=== PATIENT | female | born 1935 | race Caucasian/White ===

== ENCOUNTER 2018-01-06 16:28 | Emergency (ER) | payer MEDICARE, MEDICAID ==
[~2018-01-06] VITALS: Ht 152.4 cm; Wt 54.4 kg
--- NOTE | 2018-01-06 16:29 | NUR ---
PT IS IN ROOM #2A. DR JAEGER EVALUATED THE PT.
--- NOTE | 2018-01-06 16:35 | NUR ---
Pt is unable to recall her home medications at this time.
[2018-01-06] MEDS ORDERED: IBUPROFEN 800 MG TABLET PO ONE (17:00)
[2018-01-06] MEDS ORDERED: IBUPROFEN 800 MG TABLET ONE (17:00)
--- NOTE | 2018-01-06 18:08 | NUR ---
PT WAS D/C TO HOME. D/C INSTRUCTIONS GIVEN TO THE PT. GAIT IS STABLE. PT DENIES PAIN. NO SOB. NO N/V. PT LEFT HOSPITAL BY TAXI.
[2018-01-06 18:10] VITALS: BP 136/77
== END 2018-01-06 18:19 | disposition home or self-care (01) ==
LOC: EDBD 16:29 → ER 16:29
DX: S09.90XA Unspecified injury of head, initial encounter (principal); W01.198A Fall on same level from slipping, tripping and stumbling with subsequent striking against other object, initial encounter; Y93.89 Activity, other specified; Y92.89 Other specified places as the place of occurrence of the external cause; Y99.8 Other external cause status
CPT/HCPCS: 70450; 72125; 99284; A4663

== ENCOUNTER 2020-01-05 12:42 | Inpatient (IN) | payer MEDICARE, OTHER ==
[~2020-01-05] VITALS: Ht 152.4 cm; Wt 49.9 kg
[2020-01-05] MEDS ORDERED: ASPI81TA31 PO (12:53)
[2020-01-05] MEDS ORDERED: NITR0.4T SL (12:53)
[2020-01-05] MEDS ORDERED: ERGO500040 PO (12:53)
[2020-01-05] MEDS ORDERED: METO50TA7 PO (12:53)
[2020-01-05] MEDS ORDERED: CLON0.1T PO (12:53)
[2020-01-05] MEDS ORDERED: ACET-2154 PO (12:53)
[2020-01-05] MEDS ORDERED: FAMO-132 PO (12:53)
[2020-01-05] MEDS ORDERED: SIMV20TA2 PO (12:53)
[2020-01-05] MEDS ORDERED: CLOP75TA15 PO (12:53)
[2020-01-05] MEDS ORDERED: LISI10TA PO (12:53)
[2020-01-05] MEDS ORDERED: DONE10TA11 PO (12:53)
[2020-01-05] MEDS ORDERED: MECL-159 PO (12:53)
[2020-01-05] MEDS ORDERED: ATRO10DR (12:53)
[2020-01-05] MEDS ORDERED: QUET25TA PO (12:53)
--- NOTE | 2020-01-05 13:43 | NUR ---
PT TRANSFERED TO U IN STABLE CONDITION. PT ATE HALF A SANDWICH AND JUICE. PT REMAINED CALM AND COOPERATIVE.
[2020-01-05 14:00] VITALS: BP 139/58
--- NOTE | 2020-01-05 14:06 | NUR ---
Gps/Public Relations Coordinator - Received from ER via shell , alert, ,oriented x 2, she knows her name, and she know. Daus she is in the Hosp., claimed her daughter brought her here in the Hospital for bouts of dizziness. Per hold patient was confused, threatening her family . Daughter brought patient to the ER. via wheel chair for becoming dulce with staff and family members at home.Patient hitting self and family members .Patient denies SI./HI when asked with fur sewer (Rosa) Smiles,, oriented to the unit settings. Patient would like to be called "Alondra "
[2020-01-05] MEDS ORDERED: TEMAZEPAM 7.5 MG CAPSULE PO PRN (15:15)
[2020-01-05] MEDS ORDERED: BLOOD SUGAR DIAGNOSTIC 1 EACH STRIP VI ONE (15:15)
[2020-01-05] MEDS ORDERED: MAG HYDROX/AL HYDROX/SIMETH 30 ML LIQUID UDC PO PRN (15:15)
[2020-01-05] MEDS ORDERED: MAGNESIUM HYDROXIDE 30 ML LIQUID UDC PO PRN (15:15)
[2020-01-05] MEDS ORDERED: CLONAZEPAM 0.5 MG TABLET PO PRN (15:15)
[2020-01-05] MEDS ORDERED: ACETAMINOPHEN 325 MG TABLET PO PRN (15:15)
--- NOTE | 2020-01-05 17:12 | NUR ---
Gps/Public Records Officer- Confused, wandering around, Blood Sugar checked, 68 apple sauce , crackers given.
--- NOTE | 2020-01-05 17:57 | NUR ---
Gps/Ui Programmer- Patient has hearing aid one hearing aid left ear, per church musician patient refused to removed (Farsi speaking)
[2020-01-05 20:00] VITALS: BP 135/62
[2020-01-05] MEDS: SIMVASTATIN 20 MG TABLET PO SCH (21:10)
[2020-01-06 06:51] LABS: BASOPHILS # (AUTO) 0.1 K/uL (0.0-8.0); EOSINOPHILS # (AUTO) 0.2 K/uL (0.0-0.7); EOSINOPHILS % (AUTO) 3.2 % (0.0-7.0); HEMATOCRIT 35.3 % (31.2-41.9); HEMOGLOBIN 11.8 g/dL (10.9-14.3); LYMPHOCYTES # (AUTO) 1.4 K/uL (20.0-40.0); LYMPHOCYTES % (AUTO) 21.9 % (20.5-51.5); MEAN CORPUSCULAR HEMOGLOBIN 30.1 uug (24.7-32.8); MEAN CORPUSCULAR HGB CONC 33 g/dL (32.3-35.6); MEAN CORPUSCULAR VOLUME 90.3 fL (75.5-95.3); MONOCYTES # (AUTO) 0.6 K/uL (2.0-10.0); MONOCYTES % (AUTO) 9.7 % (0.0-11.0); NEUTROPHILS % (AUTO) 64.2 % (38.5-71.5); PLATELET COUNT (AUTO) 300 K/uL (179-408); RED BLOOD CELL COUNT(AUTO) 3.91 MIL/uL (3.63-4.92); WHITE BLOOD COUNT (AUTO) 6.2 K/uL (3.8-11.8)
[2020-01-06 07:30] VITALS: BP 147/49
[2020-01-06 07:53] LABS: ALANINE AMINOTRANSFERASE 10 U/L (14-59); ALKALINE PHOSPHATASE 85 U/L (50-136); ASPARTATE AMINOTRANSFERASE 19 U/L (15-37); BILIRUBIN,TOTAL 0.4 mg/dL (0.2-1.0); CARBON DIOXIDE 28 mmol/L (21-32); CHLORIDE 109 mmol/L (98-107); CREATININE 1.2 mg/dL (0.6-1.3); GLUCOSE 91 mg/dL (74-106); MAGNESIUM 2.2 mg/dL (1.8-2.4); PHOSPHOROUS 3.5 mg/dL (2.5-4.9); POTASSIUM 3.9 mmol/L (3.5-5.1); TOTAL PROTEIN, SERUM 6.3 g/dL (6.4-8.2); UREA NITROGEN, BLOOD 20 mg/dL (7-18)
[2020-01-06 08:37] LABS: THYROID STIMULATING HORMONE 1.552 mIU/mL (0.358-3.740)
[2020-01-06] MEDS: CLOPIDOGREL 75 MG TABLET PO SCH (08:53)
[2020-01-06] MEDS: FAMOTIDINE 20 MG TABLET PO SCH (08:54)
[2020-01-06] MEDS: METOPROLOL SUCCINATE XL 50 MG TAB.SR.24H PO SCH (08:54)
[2020-01-06] MEDS: LISINOPRIL 10 MG TABLET PO SCH (08:54)
--- NOTE | 2020-01-06 11:34 | NUR ---
Social Work Family Contact: diversified crops ii farmworker contacted patient's daughter Lola ([phone]) to gather collateral.
--- NOTE | 2020-01-06 11:34 | NUR ---
Social Work Initial Discharge Plan: Patient currently resides with daughter Lola ([phone]) at [address] [place] [address]; ([phone]). Per daughter Lola ([phone]) stated that she would want her mother to go to a SNF. restaurant worker will work with the patient and the MD regarding appropriate discharge planning. restaurant worker will form a safe and proper discharge.
[2020-01-06] MEDS ORDERED: QUETIAPINE FUMARATE 25 MG TABLET PO SCH ×2 (12:15→21:00)
[2020-01-06 15:36] VITALS: BP 118/47
--- NOTE | 2020-01-06 16:06 | NUR ---
Gps/Client Success Director- Wanders around, safety reviewed and emphasized. constant redirections.
[2020-01-06 20:00] VITALS: BP 144/72
[2020-01-06] MEDS: SIMVASTATIN 20 MG TABLET PO SCH (20:24)
[2020-01-06] MEDS: QUETIAPINE FUMARATE 25 MG TABLET PO SCH (20:25)
[2020-01-06] MEDS: MIRTAZAPINE 15 MG TABLET PO SCH (20:25)
--- NOTE | 2020-01-06 20:55 | NUR ---
Patient received wondering the hallway in and out of patient's room needs constant redirection. Patient alert/oriented x1 with confusion noted. Patient complaint with medication. Safe environment provided, frequent rounding, and clutter free environment. Bed in lowest position, bed locked, and bed alarm on while in bed.
[2020-01-06] MEDS ORDERED: MIRTAZAPINE 15 MG TABLET PO SCH (21:00)
[2020-01-07] MEDS: FAMOTIDINE 20 MG TABLET PO SCH (10:49)
[2020-01-07] MEDS: METFORMIN HCL 500 MG TABLET PO SCH ×2 (10:49→18:26)
[2020-01-07] MEDS: CLOPIDOGREL 75 MG TABLET PO SCH (10:50)
[2020-01-07] MEDS: QUETIAPINE FUMARATE 25 MG TABLET PO SCH ×2 (10:50→20:27)
--- NOTE | 2020-01-07 11:00 | NUR ---
Gps/Academic Affairs Assistant- Kathy (daughter) called wants to know how patient doing, was informed pt. only slept 1 hours last night , and when night Nurse offered prn med. restoril for sleep, pt, thre med. Also daughter claimed she spoked to patient Primary Psychiatrist from outside( Dr Chago Chavez) she is willing to cooperate to patient tx plan..
[2020-01-07 12:00] VITALS: BP 113/41
[2020-01-07] MEDS: LISINOPRIL 10 MG TABLET PO SCH (12:30)
[2020-01-07] MEDS: CYANOCOBALAMIN 1000 MCG/ML VIAL IM SCH (12:33)
[2020-01-07 16:00] VITALS: BP 115/70
[2020-01-07] MEDS: METOPROLOL SUCCINATE XL 50 MG TAB.SR.24H PO SCH (16:31)
--- NOTE | 2020-01-07 17:48 | NUR ---
Gps/Virtual Classroom Manager - Slept on and off most of the day, daughter called couple of times to check on her and to talked to her.Patient had been compliant with routine meds. after explained to her in Farsi- hand pattern marker assisting . Anxious, redirectable in Farsi, pt. also noted speaks simple Greenlandic.Offered shower late this pm.
[2020-01-07] MEDS: MIRTAZAPINE 15 MG TABLET PO SCH (20:25)
[2020-01-07] MEDS: SIMVASTATIN 20 MG TABLET PO SCH (20:27)
[2020-01-07 21:15] VITALS: BP 124/52
--- NOTE | 2020-01-07 23:28 | NUR ---
RECEIVED PATIENT WALKING UP AND DOWN THE HALLWAY WITH OCCASIONAL WANDERING INTO OTHERS ROOMS. SHE HOWEVER DOES WELL WITH RE- DIRECTION. COULD BE HEARD TALKING TO HERSELF BUT COULD NOT ASCERTAIN IF SHE WAS HEARING VOICES SHE SPEAKS MINIMAL TUVALUAN.HOWEVER APPEARS NEEDY BUT PLEASANT. VISUAL CHECKS MAD ON HER FOR SAFETY. WILL CONTINUE TO MONITOR.
[2020-01-08 07:30] VITALS: BP 123/46
[2020-01-08] MEDS: METFORMIN HCL 500 MG TABLET PO SCH ×2 (08:28→17:30)
[2020-01-08] MEDS: QUETIAPINE FUMARATE 25 MG TABLET PO SCH ×2 (08:29→20:37)
[2020-01-08] MEDS: METOPROLOL SUCCINATE XL 50 MG TAB.SR.24H PO SCH (08:29)
[2020-01-08] MEDS: LISINOPRIL 10 MG TABLET PO SCH (08:30)
[2020-01-08] MEDS: FAMOTIDINE 20 MG TABLET PO SCH (08:30)
[2020-01-08] MEDS: CLOPIDOGREL 75 MG TABLET PO SCH (08:33)
[2020-01-08] MEDS: CYANOCOBALAMIN 1000 MCG/ML VIAL IM SCH (08:36)
[2020-01-08 13:00] VITALS: BP 104/34
--- NOTE | 2020-01-08 16:29 | NUR ---
Gps/Furnace Clerk- Stayed in bed in her room most of the day, encouraged to attend her group, eat meals in the dinning room, had been meds. compliant was able to talked to her daughter 2x today.
[2020-01-08] MEDS: SIMVASTATIN 20 MG TABLET PO SCH (20:37)
[2020-01-08] MEDS ORDERED: MIRTAZAPINE 15 MG TABLET PO SCH (21:00)
--- NOTE | 2020-01-08 23:48 | NUR ---
RECEIVED PATIENT IN ACTIVITY ROOM.LATER WENT OT HER ROOM. COMPLIANT WITH MEDICATION AND COOPERATIVE WITH STAFF FOR HER CARE. NO BEHAVIORAL ISSUES AT THIS TIME. VISUAL CHECKS MADE ON HER FOR SAFETY. WILL CONTINUE TO MONITOR.
--- NOTE | 2020-01-09 06:32 | NUR ---
SLEPT FOR ABOUT 07:00 HOURS. SHE HAS HAD A SHOWER.
[2020-01-09 07:30] VITALS: BP 113/53
[2020-01-09] MEDS: FAMOTIDINE 20 MG TABLET PO SCH (08:25)
[2020-01-09] MEDS: CLOPIDOGREL 75 MG TABLET PO SCH (08:26)
[2020-01-09] MEDS: QUETIAPINE FUMARATE 25 MG TABLET PO SCH (08:26)
[2020-01-09] MEDS: LISINOPRIL 10 MG TABLET PO SCH (08:26)
[2020-01-09] MEDS: METFORMIN HCL 500 MG TABLET PO SCH (08:26)
[2020-01-09 08:27] VITALS: BP 113/53
[2020-01-09] MEDS: METOPROLOL SUCCINATE XL 50 MG TAB.SR.24H PO SCH (08:27)
[2020-01-09] MEDS: CYANOCOBALAMIN 1000 MCG/ML VIAL IM SCH (08:35)
--- NOTE | 2020-01-09 11:18 | NUR ---
Social Work Coordination of Care: construction ironworker spoke with Magui from patient's doctor office (Dr. Hunt); ([phone]) and made an apt for patient on 01/13/20 at 9:45AM. This marine underwriter contacted [facility] ([phone]) and spoke with Donavan officer of the day who arranged apt 01/11/2020 1:45PM. construction ironworker spoke to Cassie ([phone]) scheduled home health services through [facility] [address] [place] [address], [address], [place] [address] and a nurse will be sent to evaluate patient on 01/10/2020.
--- NOTE | 2020-01-09 11:20 | NUR ---
Social Work Discharge Note: Patient will be discharged home to [address], [place] [address]; ([phone]). Patients daughter Lola ([phone]) will continuous pickling line pickler helper patient at 2PM. Patients daughter is aware and agreeable to patients discharge. Upon discharge, patient appear to be calm, cooperative and happy to be going home. Patient denies suicidal and homicidal ideation. Patient is alert and oriented x1-2, is aware and agreeable on discharge and wants to go back home. Patient will follow up with Dr. Hunt (oxyacetylene cutter) at [address] [facility] [address], [place] [address] ([phone]) at January 12 at 9:45AM. Patient will follow up with (psychiatrist) Dr. Arana [place] [address] [facility] [address], [place] [address]; ([phone]) will follow-up with patient. This bond underwriter made an appointment for psychiatrist evaluation at [address] [facility] [address], [place] [address]; ([phone]) on 01/11/2020 at 1:45PM.renal social worker spoke to Cassie ([phone]) scheduled home health services through [facility] [id number] [place] [address], [address], [place] [address] and a nurse will be sent to evaluate patient on 01/10/2020. Patient presented with euthymic mood and congruent affect. Addendum: 01/09/20 at 1128 by SIDNEY DOTY Patient psychiatrist Dr. Arana got back to this bond underwriter and scheduled an apt on 01/12/20 and will be TeleHealth. Per Miri, she will send in link.
--- NOTE | 2020-01-09 11:29 | NUR ---
Social Work Firearms Report: Senior Operator completed and submitted a [employer] firearms report for 5250 grave disability certification. A copy of report has been placed in patient chart.
--- NOTE | 2020-01-09 13:42 | NUR ---
patient will be discharged home with daughter at 2 pm, patient will continue follow up with and dr. valle as well. all personal belonging and home medication returned to pt.
[2020-01-11] MEDS ORDERED: ERGOCALCIFEROL 50,000 UNIT CAPSULE PO SCH (09:00)
== END 2020-01-09 14:30 | disposition home health service (06) | DRG 885 ==
LOC: ER 12:42 → GPS 13:09
PROVIDERS: ADMIT Psychiatry & Neurology Psychiatry; ATTEND Internal Medicine
DX: F33.3 Major depressive disorder, recurrent, severe with psychotic symptoms (principal); D68.69 Other thrombophilia; F03.90 Unspecified dementia, unspecified severity, without behavioral disturbance, psychotic disturbance, mood disturbance, and anxiety; I25.10 Atherosclerotic heart disease of native coronary artery without angina pectoris; M81.0 Age-related osteoporosis without current pathological fracture; E78.5 Hyperlipidemia, unspecified; F41.9 Anxiety disorder, unspecified; M19.90 Unspecified osteoarthritis, unspecified site; I25.2 Old myocardial infarction; E53.8 Deficiency of other specified B group vitamins; E11.9 Type 2 diabetes mellitus without complications; I11.9 Hypertensive heart disease without heart failure; R91.8 Other nonspecific abnormal finding of lung field
CPT/HCPCS: 36415; 71045; 83735; 84100; 84443; 85025; 93005; A4663; J3420

== ENCOUNTER 2020-01-17 15:38 | Inpatient (IN) | payer MEDICARE, OTHER ==
[~2020-01-17] VITALS: Ht 154.9 cm; Wt 59.0 kg
[~2020-01-17 15:38] MED LIST: ACET-2154 PO; ATRO10DR; CLON0.1T PO; CLOP75TA15 PO; DONE10TA11 PO; ERGO500040 PO; FAMO-132 PO; LISI10TA PO; MECL-159 PO; METO50TA7 PO; NITR0.4T SL; QUET25TA PO; SIMV20TA2 PO
[2020-01-17 16:06] LABS: BASOPHILS # (AUTO) 0.1 K/uL (0.0-8.0); BASOPHILS % (AUTO) 0.9 % (0.0-2.0); EOSINOPHILS # (AUTO) 0.1 K/uL (0.0-0.7); EOSINOPHILS % (AUTO) 2.3 % (0.0-7.0); HEMATOCRIT 35.5 % (31.2-41.9); HEMOGLOBIN 11.7 g/dL (10.9-14.3); LYMPHOCYTES # (AUTO) 1.2 K/uL (20.0-40.0); LYMPHOCYTES % (AUTO) 18.6 % (20.5-51.5); MEAN CORPUSCULAR HEMOGLOBIN 30.2 uug (24.7-32.8); MEAN CORPUSCULAR HGB CONC 33 g/dL (32.3-35.6); MEAN CORPUSCULAR VOLUME 91.3 fL (75.5-95.3); MONOCYTES # (AUTO) 0.5 K/uL (2.0-10.0); MONOCYTES % (AUTO) 7.2 % (0.0-11.0); NEUTROPHILS # (AUTO) 4.5 K/uL (1.8-8.9); PLATELET COUNT (AUTO) 280 K/uL (179-408); RED BLOOD CELL COUNT(AUTO) 3.89 MIL/uL (3.63-4.92); WHITE BLOOD COUNT (AUTO) 6.3 K/uL (3.8-11.8)
[2020-01-17] MEDS ORDERED: CHOL10002 PO (16:06)
[2020-01-17] MEDS ORDERED: OXCA300T15 PO (16:06)
[2020-01-17] MEDS ORDERED: ASPI81TA31 PO (16:06)
[2020-01-17] MEDS ORDERED: QUET25TA PO (16:06)
[2020-01-17] MEDS ORDERED: MIRT15TA7 PO (16:06)
[2020-01-17] MEDS ORDERED: VITAMIN D (16:06)
[2020-01-17 16:14] LABS: CREATININE 1.3 mg/dL (0.6-1.3); POTASSIUM 3.9 mmol/L (3.5-5.1)
[2020-01-17 16:18] LABS: *BILIRUBIN,URIN NEGATIVE (NEGATIVE); *BLOOD, URINE NEGATIVE (NEGATIVE); *CLARITY,URINE CLEAR (CLEAR); *COLOR,URINE YELLOW (YELLOW); *KETONES,URINE NEGATIVE (NEGATIVE); *UROBILINOGEN,URINE 0.2 E.U./dl (NORMAL); LEUKOCYTE ESTERASE ,URINE TRACE (NEGATIVE); NITRITE, URINE NEGATIVE (NEGATIVE); UGLUCOSE NEGATIVE (NEGATIVE)
[2020-01-17 16:20] LABS: BILIRUBIN,DIRECT 0.1 mg/dL (0.0-0.2); BILIRUBIN,TOTAL 0.3 mg/dL (0.2-1.0); TOTAL PROTEIN, SERUM 6.5 g/dL (6.4-8.2)
[2020-01-17 17:00] VITALS: BP 128/47
[2020-01-17 17:24] LABS: RBC,URINE 0-3 /HPF (0-3)
[2020-01-17 17:25] LABS: BACTERIA,URINE FEW /HPF (NONE SEEN); SQUAMOUS EPITHELIAL CELL,UR FEW /HPF (NONE SEEN); WBC,URINE 0-3 /HPF (0-3)
[2020-01-17] MEDS ORDERED: ONDANSETRON 4 MG/2 ML VIAL IV PRN (17:45)
[2020-01-17] MEDS ORDERED: ACETAMINOPHEN 325 MG TABLET PO PRN (17:45)
[2020-01-17] MEDS ORDERED: CHOLECALCIFEROL 1,000 UNIT TABLET PO SCH (17:45)
[2020-01-17] MEDS ORDERED: QUETIAPINE FUMARATE 25 MG TABLET PO SCH (18:00)
[2020-01-17] MEDS ORDERED: ZIPRASIDONE MESYLATE 20 MG VIAL IM PRN (18:30)
[2020-01-17] MEDS ORDERED: OLANZAPINE 10 MG VIAL IM PRN ×2 (18:45)
[2020-01-17] MEDS: SIMVASTATIN 20 MG TABLET PO SCH (20:01)
[2020-01-17] MEDS: OXCARBAZEPINE 300 MG TABLET PO SCH (20:02)
[2020-01-17 20:03] VITALS: BP 121/45
[2020-01-17] MEDS ORDERED: MIRTAZAPINE 15 MG TABLET PO SCH (21:00)
[2020-01-18 04:40] VITALS: BP 122/58
[2020-01-18] MEDS: PANTOPRAZOLE SODIUM 40 MG TABLET.DR PO SCH (06:29)
[2020-01-18 06:43] LABS: BASOPHILS # (AUTO) 0.1 K/uL (0.0-8.0); BASOPHILS % (AUTO) 1.1 % (0.0-2.0); EOSINOPHILS # (AUTO) 0.2 K/uL (0.0-0.7); HEMATOCRIT 35.5 % (31.2-41.9); HEMOGLOBIN 11.9 g/dL (10.9-14.3); LYMPHOCYTES # (AUTO) 1.6 K/uL (20.0-40.0); LYMPHOCYTES % (AUTO) 29.2 % (20.5-51.5); MEAN CORPUSCULAR HEMOGLOBIN 30.4 uug (24.7-32.8); MEAN CORPUSCULAR HGB CONC 34 g/dL (32.3-35.6); MEAN CORPUSCULAR VOLUME 90.4 fL (75.5-95.3); MONOCYTES # (AUTO) 0.5 K/uL (2.0-10.0); MONOCYTES % (AUTO) 9.4 % (0.0-11.0); NEUTROPHILS # (AUTO) 3.1 K/uL (1.8-8.9); NEUTROPHILS % (AUTO) 56.3 % (38.5-71.5); PLATELET COUNT (AUTO) 273 K/uL (179-408); RED BLOOD CELL COUNT(AUTO) 3.93 MIL/uL (3.63-4.92); WHITE BLOOD COUNT (AUTO) 5.6 K/uL (3.8-11.8)
[2020-01-18 07:13] LABS: BILIRUBIN,TOTAL 0.3 mg/dL (0.2-1.0); CREATININE 1.2 mg/dL (0.6-1.3); MAGNESIUM 1.9 mg/dL (1.8-2.4); PHOSPHOROUS 3.6 mg/dL (2.5-4.9); TOTAL PROTEIN, SERUM 6.4 g/dL (6.4-8.2)
[2020-01-18] MEDS: GLIMEPIRIDE 2 MG TABLET PO SCH (08:50)
[2020-01-18] MEDS: CLOPIDOGREL 75 MG TABLET PO SCH (08:51)
[2020-01-18] MEDS: ASPIRIN EC 81 MG TABLET.DR PO SCH (08:51)
[2020-01-18] MEDS: DONEPEZIL 10 MG TABLET PO SCH (08:51)
[2020-01-18] MEDS: LISINOPRIL 10 MG TABLET PO SCH (08:54)
[2020-01-18] MEDS: METOPROLOL SUCCINATE XL 50 MG TAB.SR.24H PO SCH (08:54)
[2020-01-18] MEDS: QUETIAPINE FUMARATE 25 MG TABLET PO SCH ×3 (09:45→16:44)
[2020-01-18] MEDS: DIVALPROEX SPRINKLE 125 MG CAP.SPRINK PO SCH ×2 (09:45→20:19)
[2020-01-18 12:00] VITALS: BP 117/35
[2020-01-18 16:03] VITALS: BP 133/50
[2020-01-18] MEDS ORDERED: FUROSEMIDE 20 MG TABLET PO ONE (16:30)
[2020-01-18 20:12] VITALS: BP 145/53
[2020-01-18] MEDS: SIMVASTATIN 20 MG TABLET PO SCH (20:20)
[2020-01-18] MEDS: OXCARBAZEPINE 300 MG TABLET PO SCH (20:20)
[2020-01-18] MEDS ORDERED: MIRTAZAPINE 15 MG TABLET PO SCH (21:00)
[2020-01-19 04:06] VITALS: BP 150/61
[2020-01-19] MEDS: PANTOPRAZOLE SODIUM 40 MG TABLET.DR PO SCH (06:27)
[2020-01-19] MEDS: ASPIRIN EC 81 MG TABLET.DR PO SCH (08:03)
[2020-01-19] MEDS: METOPROLOL SUCCINATE XL 50 MG TAB.SR.24H PO SCH (08:03)
[2020-01-19] MEDS: QUETIAPINE FUMARATE 25 MG TABLET PO SCH ×3 (08:03→16:33)
[2020-01-19] MEDS: GLIMEPIRIDE 2 MG TABLET PO SCH (08:03)
[2020-01-19] MEDS: LISINOPRIL 10 MG TABLET PO SCH (08:03)
[2020-01-19] MEDS: CLOPIDOGREL 75 MG TABLET PO SCH (08:03)
[2020-01-19] MEDS: DIVALPROEX SPRINKLE 125 MG CAP.SPRINK PO SCH (08:03)
[2020-01-19] MEDS: DONEPEZIL 10 MG TABLET PO SCH (08:04)
[2020-01-19] MEDS ORDERED: ENOXAPARIN SODIUM 40 MG/0.4 ML DISP.SYRIN SQ SCH (09:00)
[2020-01-19] MEDS ORDERED: ENOXAPARIN SODIUM 30 MG/0.3 ML DISP.SYRIN SUBCUT SCH (09:00)
[2020-01-19 12:00] VITALS: BP 102/41
[2020-01-19 16:00] VITALS: BP 110/50
[2020-01-19] MEDS ORDERED: MIRT15TA7 PO ×2 (17:11→20:58)
[2020-01-19] MEDS ORDERED: GLIM2TAB PO (17:11)
[2020-01-19] MEDS ORDERED: DIVA125C2 PO ×2 (17:11→20:58)
[2020-01-19] MEDS ORDERED: ACET325T53 PO (17:11)
[2020-01-19] MEDS ORDERED: PANT40TA2 PO ×2 (17:11→20:58)
[2020-01-19] MEDS ORDERED: ATOR20TA PO ×2 (17:11→20:58)
[2020-01-19] MEDS ORDERED: ASPI-618 PO (17:11)
[2020-01-19] MEDS ORDERED: QUET25TA PO ×2 (17:11→20:58)
[2020-01-19] MEDS ORDERED: MULT-594 PO ×2 (17:11→20:58)
[2020-01-19] MEDS ORDERED: CLOP75TA33 PO (20:58)
[2020-01-19] MEDS ORDERED: GLIM1TAB PO (20:58)
[2020-01-19] MEDS ORDERED: LISI10TA5 PO (20:58)
[2020-01-19] MEDS ORDERED: METO50TA7 PO (20:58)
[2020-01-19] MEDS ORDERED: OXCA300T15 PO (20:58)
[2020-01-19] MEDS ORDERED: DONE10TA11 PO (20:58)
[2020-01-19] MEDS ORDERED: ASPI81TA31 PO (20:58)
[2020-01-19] MEDS ORDERED: CHOL400T (20:58)
== END 2020-01-19 18:35 | DRG 438 ==
LOC: ER 15:41 → MEDSURG3 16:39
PROVIDERS: ADMIT Internal Medicine; ATTEND Internal Medicine
DX: K85.90 Acute pancreatitis without necrosis or infection, unspecified (principal); N17.0 Acute kidney failure with tubular necrosis; G92 Toxic encephalopathy; I50.31 Acute diastolic (congestive) heart failure; D68.69 Other thrombophilia; F03.91 Unspecified dementia, unspecified severity, with behavioral disturbance; E87.3 Alkalosis; F33.3 Major depressive disorder, recurrent, severe with psychotic symptoms; N39.0 Urinary tract infection, site not specified; E86.9 Volume depletion, unspecified; E78.5 Hyperlipidemia, unspecified; F41.9 Anxiety disorder, unspecified; I07.1 Rheumatic tricuspid insufficiency; I11.0 Hypertensive heart disease with heart failure; I25.2 Old myocardial infarction; E53.8 Deficiency of other specified B group vitamins; E11.9 Type 2 diabetes mellitus without complications; I25.10 Atherosclerotic heart disease of native coronary artery without angina pectoris; M81.0 Age-related osteoporosis without current pathological fracture; M19.90 Unspecified osteoarthritis, unspecified site; Z79.02 Long term (current) use of antithrombotics/antiplatelets; Z79.82 Long term (current) use of aspirin; M50.30 Other cervical disc degeneration, unspecified cervical region; F39 Unspecified mood [affective] disorder; Z79.84 Long term (current) use of oral hypoglycemic drugs; R62.7 Adult failure to thrive; Z68.24 Body mass index [BMI] 24.0-24.9, adult; Z87.440 Personal history of urinary (tract) infections; R40.2362 Coma scale, best motor response, obeys commands, at arrival to emergency department; R40.2142 Coma scale, eyes open, spontaneous, at arrival to emergency department; R40.2242 Coma scale, best verbal response, confused conversation, at arrival to emergency department
CPT/HCPCS: 36415; 70030-TC; 71250; 83605; 83690; 83735; 84100; 85025; 87040; 87086; 93005; 93307; A4663; G0378; J1650; J2358

== ENCOUNTER 2020-01-19 20:04 | Inpatient (IN) | payer MEDICARE, OTHER ==
[~2020-01-19] VITALS: Ht 152.4 cm; Wt 50.3 kg
[~2020-01-19 20:04] MED LIST changes: -ACET-2154 PO; +ACET325T53 PO; +ASPI-618 PO; +ASPI81TA31 PO; +ATOR20TA PO; -ATRO10DR; +CHOL10002 PO; +DIVA125C2 PO; -ERGO500040 PO; -FAMO-132 PO; +GLIM2TAB PO; +MIRT15TA7 PO; +MULT-594 PO; -NITR0.4T SL; +OXCA300T15 PO; +PANT40TA2 PO
--- NOTE | 2020-01-19 20:30 | NUR ---
ADMISSION NOTE: Admitted earlier 84 year old female from medical surgical floor on 5150 hold for GD, hold will be up on 01/22/20 at 1545. Per hold and speaking to her daughter, patient has been agitated, non-compliant, not eating, not compliant with care, and family unable to provide care d/t behavior. Upon face to face assessment, patient A/Ox1 she speaks Farsi but she is able to understand a little Luxembourger. She is able to ambulate with steady gait. Patient reflects what is written in the hold. she is noted anxious, preoccupied, wondering in the unit. Patient required constant redirections. Pt educated regarding unit rules and expectations. Patient rights explained, Advisement and patient rights handbook given, Pt oriented to the unit, the phones, her room and roommate, and the bathroom. Patient is under the care of Dr. Ha and Dr Morales. Will continue to monitor Q15 min checks.
[2020-01-19] MEDS ORDERED: LISI10TA5 PO (20:58)
[2020-01-19] MEDS ORDERED: DONE10TA11 PO (20:58)
[2020-01-19] MEDS ORDERED: CHOL400T (20:58)
[2020-01-19] MEDS ORDERED: ATOR20TA PO (20:58)
[2020-01-19] MEDS ORDERED: ASPI81TA31 PO (20:58)
[2020-01-19] MEDS ORDERED: METO50TA7 PO (20:58)
[2020-01-19] MEDS ORDERED: MULT-594 PO (20:58)
[2020-01-19] MEDS ORDERED: DIVA125C2 PO (20:58)
[2020-01-19] MEDS ORDERED: PANT40TA2 PO (20:58)
[2020-01-19] MEDS ORDERED: QUET25TA PO (20:58)
[2020-01-19] MEDS ORDERED: GLIM1TAB PO (20:58)
[2020-01-19] MEDS ORDERED: MIRT15TA7 PO (20:58)
[2020-01-19] MEDS ORDERED: OXCA300T15 PO (20:58)
[2020-01-19] MEDS ORDERED: CLOP75TA33 PO (20:58)
[2020-01-19 21:07] VITALS: BP 119/62
[2020-01-19] MEDS ORDERED: MAGNESIUM HYDROXIDE 30 ML LIQUID UDC PO PRN (21:15)
[2020-01-19] MEDS ORDERED: MAG HYDROX/AL HYDROX/SIMETH 30 ML LIQUID UDC PO PRN (21:15)
[2020-01-19] MEDS ORDERED: BLOOD SUGAR DIAGNOSTIC 1 EACH STRIP VI ONE (21:15)
[2020-01-20 01:00] VITALS: BP 125/63
[2020-01-20 07:30] VITALS: BP 115/50
[2020-01-20 07:47] LABS: BILIRUBIN,TOTAL 0.4 mg/dL (0.2-1.0); CREATININE 1.2 mg/dL (0.6-1.3); POTASSIUM 3.6 mmol/L (3.5-5.1); TOTAL PROTEIN, SERUM 5.9 g/dL (6.4-8.2)
--- NOTE | 2020-01-20 08:52 | NUR ---
Social Work Initial Discharge Plan: Patient currently resides with daughter Lola ([phone]) at [address] [place] [address]; ([phone]). Per daughter Lola ([phone]) stated that she would want her mother to go to a SNF. sheet metal layout worker will work with the patient and the MD regarding appropriate discharge planning. sheet metal layout worker will form a safe and proper discharge.
--- NOTE | 2020-01-20 08:53 | NUR ---
Social Work Family Contact: This clinical writer contacted patient's daughter Lola ([phone]) and gathered collateral. Per daughter, she might wanted her mother to go to a SNF.
[2020-01-20] MEDS: CHOLECALCIFEROL 400 UNITS TABLET PO SCH (12:45)
[2020-01-20 15:02] VITALS: BP 132/53
[2020-01-20] MEDS: DIVALPROEX SPRINKLE 125 MG CAP.SPRINK PO SCH (17:14)
[2020-01-20] MEDS: QUETIAPINE FUMARATE 25 MG TABLET PO SCH (17:14)
[2020-01-20 20:18] VITALS: BP 134/54
[2020-01-20] MEDS: MIRTAZAPINE 15 MG TABLET PO SCH (20:30)
[2020-01-20] MEDS: ATORVASTATIN 20 MG TABLET PO SCH (20:30)
[2020-01-21] MEDS ORDERED: Medication Not On Formulary EA (Glimepiride (Amaryl) 1 MG) PO SCH (06:00)
[2020-01-21 07:30] VITALS: BP 129/47
[2020-01-21] MEDS: PANTOPRAZOLE SODIUM 40 MG TABLET.DR PO SCH (07:34)
[2020-01-21] MEDS ORDERED: Medication Not On Formulary EA (Multivitamins (Multivitamin) 1 EACH) PO SCH (09:00)
[2020-01-21] MEDS: GLIMEPIRIDE 2 MG TABLET PO SCH (09:19)
[2020-01-21] MEDS: METOPROLOL SUCCINATE XL 50 MG TAB.SR.24H PO SCH (09:20)
[2020-01-21] MEDS: DIVALPROEX SPRINKLE 125 MG CAP.SPRINK PO SCH ×3 (09:20→16:44)
[2020-01-21] MEDS: MULTIVITAMINS,THERAPEUTIC TABLET PO SCH (09:21)
[2020-01-21] MEDS: CLOPIDOGREL 75 MG TABLET PO SCH (09:21)
[2020-01-21] MEDS: ASPIRIN EC 81 MG TABLET.DR PO SCH (09:22)
[2020-01-21] MEDS: QUETIAPINE FUMARATE 25 MG TABLET PO SCH ×3 (09:22→16:44)
[2020-01-21] MEDS: LISINOPRIL 10 MG TABLET PO SCH (09:22)
[2020-01-21] MEDS: CHOLECALCIFEROL 400 UNITS TABLET PO SCH (09:23)
[2020-01-21 16:00] VITALS: BP 132/50
[2020-01-21 20:00] VITALS: BP 145/46
[2020-01-21] MEDS: MIRTAZAPINE 15 MG TABLET PO SCH (20:06)
[2020-01-21] MEDS: ATORVASTATIN 20 MG TABLET PO SCH (20:06)
--- NOTE | 2020-01-21 23:38 | NUR ---
RECEIVED PATIENT WALKING UP AND DOWN THE HALLWAY.SHE APPEARED ANXIOUS,CONFUSED BUT DOES WELL WITH REDIRECTION. SHE IS MEDICATION COMPLIANT.COULD NOT GET MUCH INFORMATION FROM HER SHE IS FARSI SPEAKING WITH LITTLE NIGERIAN.VISUAL CHECKS MADE ON HER FOR SAFETY. WILL CONTINUE TO MONITOR.
[2020-01-22] MEDS: CLONAZEPAM 0.5 MG TABLET PO PRN (00:43)
[2020-01-22] MEDS: PANTOPRAZOLE SODIUM 40 MG TABLET.DR PO SCH (06:12)
--- NOTE | 2020-01-22 06:21 | NUR ---
SHE SLEPT FOR APPROX.4:45 HOURS. GOT UP SEVERAL TIMES DURING THE NIGHT. HOWEVER RESTING COMFORTABLY IN BED THIS MORNING.
[2020-01-22 07:30] VITALS: BP 134/69
[2020-01-22] MEDS: GLIMEPIRIDE 2 MG TABLET PO SCH (07:59)
[2020-01-22] MEDS: QUETIAPINE FUMARATE 25 MG TABLET PO SCH (08:00)
[2020-01-22] MEDS: LISINOPRIL 10 MG TABLET PO SCH (08:00)
[2020-01-22] MEDS: DIVALPROEX SPRINKLE 125 MG CAP.SPRINK PO SCH ×3 (08:00→17:00)
[2020-01-22] MEDS: CLOPIDOGREL 75 MG TABLET PO SCH (08:01)
[2020-01-22] MEDS: CHOLECALCIFEROL 400 UNITS TABLET PO SCH (08:01)
[2020-01-22] MEDS: ASPIRIN EC 81 MG TABLET.DR PO SCH (08:01)
[2020-01-22] MEDS: METOPROLOL SUCCINATE XL 50 MG TAB.SR.24H PO SCH (08:01)
[2020-01-22] MEDS: MULTIVITAMINS,THERAPEUTIC TABLET PO SCH (08:01)
--- NOTE | 2020-01-22 09:00 | NUR ---
Patient became dizzy and unsteady. Redirected back to bed and when she didn't stay in bed due to safety risk, patient placed in malena chair and slept for 1/2 hour.
[2020-01-22 11:55] LABS: BASOPHILS % (AUTO) 0.6 % (0.0-2.0); EOSINOPHILS # (AUTO) 0.2 K/uL (0.0-0.7); EOSINOPHILS % (AUTO) 2.5 % (0.0-7.0); HEMATOCRIT 37.3 % (31.2-41.9); HEMOGLOBIN 12.3 g/dL (10.9-14.3); LYMPHOCYTES # (AUTO) 1.7 K/uL (20.0-40.0); LYMPHOCYTES % (AUTO) 25.4 % (20.5-51.5); MEAN CORPUSCULAR HEMOGLOBIN 30.1 uug (24.7-32.8); MEAN CORPUSCULAR HGB CONC 33 g/dL (32.3-35.6); MEAN CORPUSCULAR VOLUME 91.4 fL (75.5-95.3); MONOCYTES # (AUTO) 0.5 K/uL (2.0-10.0); MONOCYTES % (AUTO) 7.9 % (0.0-11.0); NEUTROPHILS # (AUTO) 4.4 K/uL (1.8-8.9); NEUTROPHILS % (AUTO) 63.6 % (38.5-71.5); PLATELET COUNT (AUTO) 258 K/uL (179-408); RED BLOOD CELL COUNT(AUTO) 4.08 MIL/uL (3.63-4.92); WHITE BLOOD COUNT (AUTO) 6.9 K/uL (3.8-11.8)
[2020-01-22 12:11] LABS: BILIRUBIN,TOTAL 0.3 mg/dL (0.2-1.0); CREATININE 1.1 mg/dL (0.6-1.3); PHOSPHOROUS 3.5 mg/dL (2.5-4.9); POTASSIUM 3.9 mmol/L (3.5-5.1)
--- NOTE | 2020-01-22 12:45 | NUR ---
Glucose check completed as patient continues to be unsteady and tired. glucose check revealed Blood sugar of 31.
--- NOTE | 2020-01-22 13:15 | NUR ---
Glucose receck revealed to be 25, continued to treat with apple juice and other carb snacks. patient alert and was able to swallow without difficulty.
[2020-01-22 15:14] VITALS: BP 148/79
--- NOTE | 2020-01-22 15:40 | NUR ---
Glucose recheck revealed to be 86. Patient is alert and sitting up in bed.
[2020-01-22 20:51] VITALS: BP 151/61
[2020-01-22] MEDS: MIRTAZAPINE 15 MG TABLET PO SCH (20:51)
[2020-01-22] MEDS: ATORVASTATIN 20 MG TABLET PO SCH (20:51)
--- NOTE | 2020-01-23 01:14 | NUR ---
RECEIVED PATIENT IN BED WITH 1:1 SITTER. NOTED ANXIOUS WITH OCCASIONAL AGITATION BUT DOES WELL WITH RE DIRECTION. RANDOM BLOOD GLUCOSE CHECKS MADE. ENCOURAGED TO DRINK SOME ORANGE/APPLE JUICE BUT ONLY SIPS TAKEN. WILL CONTINUE TO MONITOR.
[2020-01-23] MEDS: PANTOPRAZOLE SODIUM 40 MG TABLET.DR PO SCH (06:20)
--- NOTE | 2020-01-23 06:32 | NUR ---
SLEPT F0R ONLY 2:HOURS. AWAKE WITH 1:1 SITTER. RANDOM BLOOD GLUCOSE CHECK DONE BOTH AT 02:00 AND IT WAS 60 AND THIS MORNING IT WAS 50. PROTOCOL INITIATED. GAVE APPLE JUICE WITH EXTRA SUGAR INCLUDED. ALSO GAVE PUDDING WELL. PLEASE CONTINUE TO MONITOR
[2020-01-23 08:00] VITALS: BP 146/55
[2020-01-23] MEDS: CLOPIDOGREL 75 MG TABLET PO SCH (09:37)
[2020-01-23] MEDS: DIVALPROEX SPRINKLE 125 MG CAP.SPRINK PO SCH ×3 (09:37→18:02)
[2020-01-23] MEDS: METOPROLOL SUCCINATE XL 50 MG TAB.SR.24H PO SCH (09:37)
[2020-01-23] MEDS: LISINOPRIL 10 MG TABLET PO SCH (09:37)
[2020-01-23] MEDS: MULTIVITAMINS,THERAPEUTIC TABLET PO SCH (09:37)
[2020-01-23] MEDS: CHOLECALCIFEROL 400 UNITS TABLET PO SCH (09:38)
[2020-01-23] MEDS: ASPIRIN EC 81 MG TABLET.DR PO SCH (09:38)
--- NOTE | 2020-01-23 15:19 | NUR ---
Social Work Coordination of Care: This policy writer sales spoke with Antoinette tam from [facility] ([phone]) and who stated that they will accept patient upon discharge.
--- NOTE | 2020-01-23 15:23 | NUR ---
Social Work Family Contact: flume worker spoke with patient's daughter Lola ([phone]) and discussed patient's discharge plan. Per Lola, she agrees for patient to be discharged to a snf facility. This ticket writer discussed that patient is accepted at [facility] ([phone]) and is agreeable.
[2020-01-23 16:19] VITALS: BP 153/52
[2020-01-23] MEDS: OLANZAPINE 2.5 MG TABLET PO SCH (20:14)
[2020-01-23] MEDS: MIRTAZAPINE 15 MG TABLET PO SCH (20:14)
[2020-01-23] MEDS: DICLOFENAC SODIUM 1% TOP SCH (20:15)
[2020-01-23] MEDS: ATORVASTATIN 20 MG TABLET PO SCH (20:15)
[2020-01-23 20:31] VITALS: BP 134/54
[2020-01-23] MEDS ORDERED: HOME MED MISCELLANEOUS TP SCH (21:00)
--- NOTE | 2020-01-24 05:52 | NUR ---
GPS: Remain calm and cooperative with meds and care. no c/o pain or discomfort at this time. no behavior problem noted. resting in bed comfortably. slept 6 hrs through the night. continue plan of care.
[2020-01-24] MEDS: PANTOPRAZOLE SODIUM 40 MG TABLET.DR PO SCH (06:20)
[2020-01-24 07:30] VITALS: BP 119/53
--- NOTE | 2020-01-24 08:00 | NUR ---
received patient asleep in bed, patient took medication, seen speaking with the alterations tailor, patient woke up refused to eat her breakfast and lunch, patient took some tea , patient reamin isolative and withdrawn, , covid test was done with the patient for her SNF DC planning, will continue monitor
[2020-01-24] MEDS: CLOPIDOGREL 75 MG TABLET PO SCH (08:50)
[2020-01-24] MEDS: LISINOPRIL 10 MG TABLET PO SCH (08:50)
[2020-01-24] MEDS: DIVALPROEX SPRINKLE 125 MG CAP.SPRINK PO SCH ×3 (08:50→16:23)
[2020-01-24] MEDS: ASPIRIN EC 81 MG TABLET.DR PO SCH (08:53)
[2020-01-24] MEDS: METOPROLOL SUCCINATE XL 50 MG TAB.SR.24H PO SCH (09:00)
[2020-01-24] MEDS: CHOLECALCIFEROL 400 UNITS TABLET PO SCH (09:05)
[2020-01-24] MEDS: MULTIVITAMINS,THERAPEUTIC TABLET PO SCH (09:08)
[2020-01-24] MEDS: DICLOFENAC SODIUM 1% TOP SCH ×2 (09:09→21:48)
[2020-01-24 15:44] VITALS: BP 126/50
--- NOTE | 2020-01-24 18:13 | NUR ---
patient remain calm, isolative and patient not eating her dinner tray, encouraged to eat but patient refused, no distress at this time
--- NOTE | 2020-01-24 19:00 | NUR ---
Patient alert but forgetful, no complain of pain at this time. Patient ambulate in hallways, then goes back to her room, remains calm at this time. cont to monitor.
[2020-01-24 20:17] VITALS: BP 112/50
[2020-01-24] MEDS: ATORVASTATIN 20 MG TABLET PO SCH (20:18)
[2020-01-24] MEDS: MIRTAZAPINE 15 MG TABLET PO SCH (20:18)
[2020-01-24] MEDS: OLANZAPINE 2.5 MG TABLET PO SCH (20:18)
--- NOTE | 2020-01-25 05:56 | NUR ---
PATIENT ASLEEP BUT EASILY AROUSABLE, NO COMPLAIN OF PAIN. PATIENT CALM ALL NIGHT, CONT TO MONITOR.
[2020-01-25] MEDS: PANTOPRAZOLE SODIUM 40 MG TABLET.DR PO SCH (06:43)
[2020-01-25 07:30] VITALS: BP 103/35
[2020-01-25] MEDS: LISINOPRIL 10 MG TABLET PO SCH (09:00)
[2020-01-25] MEDS: METOPROLOL SUCCINATE XL 50 MG TAB.SR.24H PO SCH (09:00)
[2020-01-25] MEDS: MULTIVITAMINS,THERAPEUTIC TABLET PO SCH (09:01)
[2020-01-25] MEDS: ASPIRIN EC 81 MG TABLET.DR PO SCH (09:01)
[2020-01-25] MEDS: CLOPIDOGREL 75 MG TABLET PO SCH (09:01)
[2020-01-25] MEDS: DIVALPROEX SPRINKLE 125 MG CAP.SPRINK PO SCH ×3 (09:01→16:53)
[2020-01-25] MEDS: CHOLECALCIFEROL 400 UNITS TABLET PO SCH (09:19)
[2020-01-25] MEDS: DICLOFENAC SODIUM 1% TOP SCH ×2 (09:20→20:38)
[2020-01-25 16:00] VITALS: BP 125/41
[2020-01-25 20:28] VITALS: BP 127/54
[2020-01-25] MEDS: OLANZAPINE 2.5 MG TABLET PO SCH (20:45)
[2020-01-25] MEDS: MIRTAZAPINE 15 MG TABLET PO SCH (20:45)
[2020-01-25] MEDS: ATORVASTATIN 20 MG TABLET PO SCH (20:45)
[2020-01-25] MEDS: TEMAZEPAM 7.5 MG CAPSULE PO PRN (21:00)
[2020-01-26] MEDS: PANTOPRAZOLE SODIUM 40 MG TABLET.DR PO SCH (06:26)
[2020-01-26 07:30] VITALS: BP 108/31
[2020-01-26] MEDS: LISINOPRIL 10 MG TABLET PO SCH (09:00)
[2020-01-26] MEDS: METOPROLOL SUCCINATE XL 50 MG TAB.SR.24H PO SCH (09:00)
[2020-01-26] MEDS: CLOPIDOGREL 75 MG TABLET PO SCH (09:34)
[2020-01-26] MEDS: MULTIVITAMINS,THERAPEUTIC TABLET PO SCH (09:34)
[2020-01-26] MEDS: DIVALPROEX SPRINKLE 125 MG CAP.SPRINK PO SCH ×3 (09:34→17:17)
[2020-01-26] MEDS: ASPIRIN EC 81 MG TABLET.DR PO SCH (09:34)
[2020-01-26] MEDS: CHOLECALCIFEROL 400 UNITS TABLET PO SCH (09:37)
[2020-01-26] MEDS: DICLOFENAC SODIUM 1% TOP SCH ×2 (09:39→20:58)
[2020-01-26 16:00] VITALS: BP 119/42
[2020-01-26 20:00] VITALS: BP 136/64
[2020-01-26] MEDS: OLANZAPINE 2.5 MG TABLET PO SCH (20:57)
[2020-01-26] MEDS: ATORVASTATIN 20 MG TABLET PO SCH (20:57)
[2020-01-26] MEDS: MIRTAZAPINE 15 MG TABLET PO SCH (20:57)
--- NOTE | 2020-01-27 04:28 | NUR ---
Received patient AAO x3. Calm and cooperative. Redirectable. Compliant with medications. No behavioral issue. No SI. Continue to monitor.
[2020-01-27] MEDS: PANTOPRAZOLE SODIUM 40 MG TABLET.DR PO SCH (06:55)
--- NOTE | 2020-01-27 06:55 | NUR ---
Patient refused Protonix 40 mg. risks and benefits explained, still refused. The medication was returned.
[2020-01-27 07:30] VITALS: BP 109/45
--- NOTE | 2020-01-27 08:40 | NUR ---
Patient received in room sleeping, no acute distress noted. Farsi speaking mostly; Vital signs stable for patient; no c/o pain. Patient stated she wants to sleep at this time. Safety measures in place and will continue with care.
[2020-01-27] MEDS: METOPROLOL SUCCINATE XL 50 MG TAB.SR.24H PO SCH (09:00)
[2020-01-27] MEDS: LISINOPRIL 10 MG TABLET PO SCH (09:00)
[2020-01-27] MEDS: CLOPIDOGREL 75 MG TABLET PO SCH (10:11)
[2020-01-27] MEDS: ASPIRIN EC 81 MG TABLET.DR PO SCH (10:11)
[2020-01-27] MEDS: DIVALPROEX SPRINKLE 125 MG CAP.SPRINK PO SCH ×3 (10:11→17:19)
[2020-01-27] MEDS: CHOLECALCIFEROL 400 UNITS TABLET PO SCH (10:11)
[2020-01-27] MEDS: MULTIVITAMINS,THERAPEUTIC TABLET PO SCH (10:12)
[2020-01-27] MEDS: DICLOFENAC SODIUM 1% TOP SCH ×2 (10:14→21:16)
--- NOTE | 2020-01-27 13:30 | NUR ---
SIDNEY Group Note: SIDNEY facilitated group therapy on 01/27/2020 at 1330. The group topic was discharge planning. Pt refused to attend group. SIDNEY encouraged the pt to engage in all aspects of treatment to best benefit her recovery. SIDNEY will continue to encourage pt to attend group therapy.
[2020-01-27 15:43] VITALS: BP 123/45
--- NOTE | 2020-01-27 15:52 | NUR ---
Family Contact: chemical plant worker spoke with patient's daughter Lola ([phone]) and informed her that two facilities have accepted the pt and that they are open to receive admissions. SW stated that the pt has shown less agitation and therefore will be discharged sometime in the next week to a facility. SW asked the pts daughter to call the following week with a choice between the two facilities.
--- NOTE | 2020-01-27 18:33 | NUR ---
Patient AAO x 1-2, able to express needs. NO acute distress noted. Vital signs stable. Patient was compliant throughout shift, took all due medications and tolerated well. Also compliant with care. No agitation or any SI noted. Patient participated in groups and activities at times, but stayed in the room for most of shift. Cooperates with care. Safety measures in place, needs attended, skin kept clean and dry, (took shower) and will continue with care.
[2020-01-27] MEDS: ATORVASTATIN 20 MG TABLET PO SCH (21:16)
[2020-01-27] MEDS: OLANZAPINE 2.5 MG TABLET PO SCH (21:16)
[2020-01-27] MEDS: MIRTAZAPINE 15 MG TABLET PO SCH (21:16)
[2020-01-27 21:20] VITALS: BP 148/56
[2020-01-28] MEDS: PANTOPRAZOLE SODIUM 40 MG TABLET.DR PO SCH (06:28)
[2020-01-28 07:30] VITALS: BP 132/79
[2020-01-28] MEDS: DICLOFENAC SODIUM 1% TOP SCH ×2 (10:00→20:12)
[2020-01-28] MEDS: CHOLECALCIFEROL 400 UNITS TABLET PO SCH (10:01)
[2020-01-28] MEDS: ASPIRIN EC 81 MG TABLET.DR PO SCH (10:01)
[2020-01-28] MEDS: DIVALPROEX SPRINKLE 125 MG CAP.SPRINK PO SCH ×3 (10:01→16:30)
[2020-01-28] MEDS: CLOPIDOGREL 75 MG TABLET PO SCH (10:01)
[2020-01-28] MEDS: MULTIVITAMINS,THERAPEUTIC TABLET PO SCH (10:02)
[2020-01-28] MEDS: LISINOPRIL 10 MG TABLET PO SCH (10:02)
[2020-01-28] MEDS: METOPROLOL SUCCINATE XL 50 MG TAB.SR.24H PO SCH (10:02)
[2020-01-28] MEDS ORDERED: POLYVINYL ALCOHOL OPHT DROPS 15 ML BOTTLE EACHEYE PRN (15:15)
--- NOTE | 2020-01-28 15:20 | NUR ---
spoke with patients daughter regarding the eye drop, called and spoke with MD with orders made and carried out will, called pharmacy for the eyedrops, will follow up
[2020-01-28 20:00] VITALS: BP 124/58
[2020-01-28] MEDS: MIRTAZAPINE 15 MG TABLET PO SCH (20:12)
[2020-01-28] MEDS: ATORVASTATIN 20 MG TABLET PO SCH (20:12)
[2020-01-28] MEDS: OLANZAPINE 2.5 MG TABLET PO SCH (20:12)
[2020-01-29] MEDS: TEMAZEPAM 7.5 MG CAPSULE PO PRN (01:11)
--- NOTE | 2020-01-29 06:11 | NUR ---
GPS: Remain awake most of the night. slept only 1 hrs through the night, Restoril 7.5 mg po given for sleep. not effective. refused shower this morning. Continue monitoring for safety.
[2020-01-29] MEDS: PANTOPRAZOLE SODIUM 40 MG TABLET.DR PO SCH (06:15)
[2020-01-29 07:14] LABS: BASOPHILS # (AUTO) 0.1 K/uL (0.0-8.0); BASOPHILS % (AUTO) 0.9 % (0.0-2.0); EOSINOPHILS # (AUTO) 0.2 K/uL (0.0-0.7); EOSINOPHILS % (AUTO) 3.3 % (0.0-7.0); HEMATOCRIT 37.4 % (31.2-41.9); HEMOGLOBIN 12.1 g/dL (10.9-14.3); LYMPHOCYTES # (AUTO) 1.5 K/uL (20.0-40.0); LYMPHOCYTES % (AUTO) 21.9 % (20.5-51.5); MEAN CORPUSCULAR HEMOGLOBIN 29.6 uug (24.7-32.8); MEAN CORPUSCULAR HGB CONC 32 g/dL (32.3-35.6); MEAN CORPUSCULAR VOLUME 91.4 fL (75.5-95.3); MONOCYTES # (AUTO) 0.7 K/uL (2.0-10.0); MONOCYTES % (AUTO) 10.1 % (0.0-11.0); NEUTROPHILS # (AUTO) 4.3 K/uL (1.8-8.9); NEUTROPHILS % (AUTO) 63.8 % (38.5-71.5); PLATELET COUNT (AUTO) 255 K/uL (179-408); RED BLOOD CELL COUNT(AUTO) 4.09 MIL/uL (3.63-4.92); WHITE BLOOD COUNT (AUTO) 6.8 K/uL (3.8-11.8)
[2020-01-29 07:30] VITALS: BP 96/51
[2020-01-29 07:59] LABS: BILIRUBIN,TOTAL 0.4 mg/dL (0.2-1.0); CREATININE 1.3 mg/dL (0.6-1.3); PHOSPHOROUS 3.1 mg/dL (2.5-4.9); POTASSIUM 4.1 mmol/L (3.5-5.1); TOTAL PROTEIN, SERUM 7.1 g/dL (6.4-8.2)
[2020-01-29] MEDS: CLOPIDOGREL 75 MG TABLET PO SCH (08:25)
[2020-01-29] MEDS: ASPIRIN EC 81 MG TABLET.DR PO SCH (08:25)
[2020-01-29] MEDS: DIVALPROEX SPRINKLE 125 MG CAP.SPRINK PO SCH ×3 (08:25→18:15)
[2020-01-29] MEDS: MULTIVITAMINS,THERAPEUTIC TABLET PO SCH (08:25)
[2020-01-29] MEDS: LISINOPRIL 10 MG TABLET PO SCH (08:26)
[2020-01-29] MEDS: METOPROLOL SUCCINATE XL 50 MG TAB.SR.24H PO SCH (08:26)
[2020-01-29] MEDS: CHOLECALCIFEROL 400 UNITS TABLET PO SCH (08:28)
[2020-01-29] MEDS: DICLOFENAC SODIUM 1% TOP SCH ×2 (08:29→20:30)
[2020-01-29 16:45] VITALS: BP 98/49
[2020-01-29] MEDS: OLANZAPINE 2.5 MG TABLET PO SCH (20:30)
[2020-01-29] MEDS: MIRTAZAPINE 15 MG TABLET PO SCH (20:30)
[2020-01-29] MEDS: ATORVASTATIN 20 MG TABLET PO SCH (20:30)
[2020-01-29 20:41] VITALS: BP 126/50
[2020-01-29] MEDS: CLONAZEPAM 0.5 MG TABLET PO PRN (22:08)
[2020-01-30] MEDS: TEMAZEPAM 7.5 MG CAPSULE PO PRN ×2 (00:39→22:08)
[2020-01-30] MEDS: CLONAZEPAM 0.5 MG TABLET PO PRN ×2 (04:10→08:06)
[2020-01-30] MEDS: PANTOPRAZOLE SODIUM 40 MG TABLET.DR PO SCH (06:12)
--- NOTE | 2020-01-30 06:16 | NUR ---
Slept 1.30 hours last night.
[2020-01-30 07:30] VITALS: BP 126/39
[2020-01-30] MEDS: ASPIRIN EC 81 MG TABLET.DR PO SCH (08:06)
[2020-01-30] MEDS: MULTIVITAMINS,THERAPEUTIC TABLET PO SCH (08:06)
[2020-01-30] MEDS: ACETAMINOPHEN 325 MG TABLET PO PRN ×2 (08:06→22:08)
[2020-01-30] MEDS: DIVALPROEX SPRINKLE 125 MG CAP.SPRINK PO SCH ×3 (08:06→17:00)
[2020-01-30] MEDS: CLOPIDOGREL 75 MG TABLET PO SCH (08:06)
[2020-01-30] MEDS: LISINOPRIL 10 MG TABLET PO SCH (08:07)
[2020-01-30] MEDS: METOPROLOL SUCCINATE XL 50 MG TAB.SR.24H PO SCH (08:07)
[2020-01-30] MEDS: CHOLECALCIFEROL 400 UNITS TABLET PO SCH (08:08)
[2020-01-30] MEDS: DICLOFENAC SODIUM 1% TOP SCH ×2 (08:08→20:50)
[2020-01-30 12:11] LABS: *BILIRUBIN,URIN NEGATIVE (NEGATIVE); *BLOOD, URINE NEGATIVE (NEGATIVE); *CLARITY,URINE CLEAR (CLEAR); *COLOR,URINE YELLOW (YELLOW); *KETONES,URINE NEGATIVE (NEGATIVE); *UROBILINOGEN,URINE 0.2 E.U./dl (NORMAL); LEUKOCYTE ESTERASE ,URINE 2+ (NEGATIVE); NITRITE, URINE NEGATIVE (NEGATIVE); PH,URINE 5.5 (5.0-8.0); UGLUCOSE NEGATIVE (NEGATIVE)
--- NOTE | 2020-01-30 12:53 | NUR ---
Family Contact: Patient's daughter Lola ([phone]) called the SW and stated that she would like the pt to be discharged to [facility]. SW stated that once the MD provides the SW with a discharge order she will arrange the pts discharge. SW informed her that the pt has not been sleeping so it may be one to two more days.
[2020-01-30 16:00] VITALS: BP 127/49
[2020-01-30 16:16] LABS: BACTERIA,URINE FEW /HPF (NONE SEEN); RBC,URINE 0-3 /HPF (0-3); SQUAMOUS EPITHELIAL CELL,UR FEW /HPF (NONE SEEN)
[2020-01-30 20:00] VITALS: BP 127/42
[2020-01-30] MEDS: ATORVASTATIN 20 MG TABLET PO SCH (20:43)
[2020-01-30] MEDS: MIRTAZAPINE 15 MG TABLET PO SCH (20:43)
[2020-01-30] MEDS: OLANZAPINE 2.5 MG TABLET PO SCH (20:43)
[2020-01-30] MEDS: NITROFURANTOIN/NITROFURAN MAC 100 MG CAPSULE PO SCH (21:56)
[2020-01-31] MEDS: CLONAZEPAM 0.5 MG TABLET PO PRN ×2 (00:22→07:49)
[2020-01-31] MEDS: PANTOPRAZOLE SODIUM 40 MG TABLET.DR PO SCH (06:02)
--- NOTE | 2020-01-31 06:09 | NUR ---
PT SLEPT 3 HOURS. PT IN NO ACUTE DISTRESS. PT PRESCRIBED MEDICATION GIVEN AND PT TOLERATED IT WELL. PT GIVEN TYLENOL PRN AT 2208H FOR PAIN. RESTORIL GIVEN AT 2208H GIVEN PER NURSE ASSESSMENT. ATIVAN GIIVEN PRN AT 0022H . PT YELLING, AGITATED AND BANGING THE TABLE.. AFTER AN HOUR PT CALM DOWN. PT TOLERATED IT WELL. . PT CONFUSED. NEEDS REORIENTATION AND REDIRECTION. PT NEEDS ASSIST IN AMBULATING. PT GETTING OUT OF THE BED. SAFETY AND COMFORT PROVIDED. WILL ENDORSE TO INCOMING NURSE FOR CONTINUITY OF CARE.
[2020-01-31 07:30] VITALS: BP 134/56
[2020-01-31] MEDS: ACETAMINOPHEN 325 MG TABLET PO PRN (07:49)
[2020-01-31] MEDS: NITROFURANTOIN/NITROFURAN MAC 100 MG CAPSULE PO SCH ×2 (08:20→21:21)
[2020-01-31] MEDS: DIVALPROEX SPRINKLE 125 MG CAP.SPRINK PO SCH ×3 (08:20→16:57)
[2020-01-31] MEDS: CHOLECALCIFEROL 400 UNITS TABLET PO SCH (08:20)
[2020-01-31] MEDS: CLOPIDOGREL 75 MG TABLET PO SCH (08:20)
[2020-01-31] MEDS: ASPIRIN EC 81 MG TABLET.DR PO SCH (08:20)
[2020-01-31] MEDS: METOPROLOL SUCCINATE XL 50 MG TAB.SR.24H PO SCH (08:21)
[2020-01-31] MEDS: MULTIVITAMINS,THERAPEUTIC TABLET PO SCH (08:21)
[2020-01-31] MEDS: LISINOPRIL 10 MG TABLET PO SCH (08:21)
[2020-01-31] MEDS: DICLOFENAC SODIUM 1% TOP SCH ×2 (09:08→21:24)
--- NOTE | 2020-01-31 11:37 | NUR ---
Family Contact: SW called the patient's daughter Lola ([phone]) and informed her that the pt is going to be discharged to [facility] the following day. She also provided the pts daughter with an update regarding the pts behavior and informed her that the pt has not been sleeping well but has shown less agitation. SIDNEY stated that the sleep is not a concern at this time and the discharge will go on as proceeded.
--- NOTE | 2020-01-31 15:06 | NUR ---
GPS: Nursing Notes: Inform Gina of Family Complaint: Huy from administration called the unit stating that the daughter of Teresa is calling administration and complaining that she cannot talk to her mom, patient is sleeping and resting due to not sleeping at night and having a bladder infection, Dr. Ha informed to call Teresa's daughter, phone number giving to Dr. Ha, informed Gina of Teresa's daughter Levar complaining that the nurses are not cooperating that she going to call administration, Gina examined the patient and stated that she is going to call the daughter, adjusto writer operator called Huy and informed him that I tried two time to get her fully awake to call the daughter, but patient continue to cover her head and continue to rest, also informed Huy that Gina is going to call the daughter.
[2020-01-31 15:20] VITALS: BP 128/53
[2020-01-31 20:00] VITALS: BP 130/52
--- NOTE | 2020-01-31 20:30 | NUR ---
Patient received into care sitting on side of bed in room. Patient is alert/oriented x2 and has no complaints of pain or discomfort at this time. All safety, fall, allergy, and GPS/MHU precautions are in place. Will continue to monitor and assess.
[2020-01-31] MEDS: ATORVASTATIN 20 MG TABLET PO SCH (21:21)
[2020-01-31] MEDS: MIRTAZAPINE 15 MG TABLET PO SCH (21:21)
[2020-01-31] MEDS: OLANZAPINE 2.5 MG TABLET PO SCH (21:21)
[2020-01-31] MEDS: TEMAZEPAM 7.5 MG CAPSULE PO PRN (23:08)
[2020-02-01] MEDS: CLONAZEPAM 0.5 MG TABLET PO PRN (01:48)
[2020-02-01] MEDS: PANTOPRAZOLE SODIUM 40 MG TABLET.DR PO SCH (06:04)
--- NOTE | 2020-02-01 06:46 | NUR ---
Patient slept 30 minutes this shift. Pt was compliant with medication regime, including PRN sleeping medication and PRN Klonopin. Pt is now in bed sleeping. All allergy, safety, fall, and GPS/MHU, precaution measures remain in place.
[2020-02-01 07:30] VITALS: BP 110/74
[2020-02-01 09:00] VITALS: BP 107/40
[2020-02-01] MEDS: METOPROLOL SUCCINATE XL 50 MG TAB.SR.24H PO SCH (09:00)
[2020-02-01] MEDS: LISINOPRIL 10 MG TABLET PO SCH (09:00)
--- NOTE | 2020-02-01 11:15 | NUR ---
Discharge Note: Pt was discharged to [facility] located at [address] [place] [address]; . Pt was transported via [facility] at 1300. Pts daughter, Lola ([phone]), was made aware of the discharge. Upon discharge, the pt presented in a euthymic mood and presented with a lethargic affect. Pt denied both suicidal and homicidal ideation as well as auditory and visual hallucinations. Pt appeared to be well groomed and appropriately dressed. Pt is ambulatory with a fairly steady gait. Pt will continue to be under the care of her psychiatrist, Dr. Ha, located at [address] [facility] [place] [address]; and will be under the care of long distance operator, Dr. Javi Redmond, located at [address] [facility] [address], [place] [address]; .
[2020-02-01] MEDS: NITROFURANTOIN/NITROFURAN MAC 100 MG CAPSULE PO SCH (11:56)
[2020-02-01] MEDS: CLOPIDOGREL 75 MG TABLET PO SCH (11:58)
[2020-02-01] MEDS: DIVALPROEX SPRINKLE 125 MG CAP.SPRINK PO SCH ×2 (11:59→12:21)
[2020-02-01] MEDS: ASPIRIN EC 81 MG TABLET.DR PO SCH (11:59)
[2020-02-01] MEDS: MULTIVITAMINS,THERAPEUTIC TABLET PO SCH (12:00)
[2020-02-01] MEDS: CHOLECALCIFEROL 400 UNITS TABLET PO SCH (12:02)
[2020-02-01] MEDS: DICLOFENAC SODIUM 1% TOP SCH (12:03)
--- NOTE | 2020-02-01 12:20 | NUR ---
1130 Called in report to [facility], SNF spoke with Adrianna OKEEFE who is admitting the patient. Nurse informed about medications to continue upon discharged and verbalized understanding. 1215 Discharged patient to SNF and picked up by ambulance stable condition. patient denies SI / HI. No delusion. No a/v hallucination noted.
--- NOTE | 2020-02-01 12:22 | NUR ---
depakote 125 mg at 1300 not given, too closed to first dose.
--- NOTE | 2020-02-01 13:28 | NUR ---
Family Contact: SW called the patient's daughter Lola ([phone]) and informed her that the pt was just discharged to the facility.
--- NOTE | 2020-02-07 10:27 | NUR ---
Social Work Firearms Report ([employer]J): Stiff Neck Loader completed and submitted a DP[employer] firearms report for 5150 DTSO certification. A copy of report has been placed in patient chart.
[2020-03-10] MEDS ORDERED: CEPH-569 PO (16:01)
== END 2020-02-01 13:15 | DRG 885 ==
LOC: GPS 20:04
PROVIDERS: ADMIT Psychiatry & Neurology Psychiatry; ATTEND Internal Medicine
DX: F33.3 Major depressive disorder, recurrent, severe with psychotic symptoms (principal); N17.0 Acute kidney failure with tubular necrosis; I11.0 Hypertensive heart disease with heart failure; K85.90 Acute pancreatitis without necrosis or infection, unspecified; I50.31 Acute diastolic (congestive) heart failure; E44.1 Mild protein-calorie malnutrition; F03.91 Unspecified dementia, unspecified severity, with behavioral disturbance; N39.0 Urinary tract infection, site not specified; E87.3 Alkalosis; E11.9 Type 2 diabetes mellitus without complications; F41.9 Anxiety disorder, unspecified; I25.10 Atherosclerotic heart disease of native coronary artery without angina pectoris; M81.0 Age-related osteoporosis without current pathological fracture; M19.90 Unspecified osteoarthritis, unspecified site; I25.2 Old myocardial infarction; E78.5 Hyperlipidemia, unspecified; M50.30 Other cervical disc degeneration, unspecified cervical region; E53.8 Deficiency of other specified B group vitamins; M48.02 Spinal stenosis, cervical region; F39 Unspecified mood [affective] disorder; Z73.6 Limitation of activities due to disability; F29 Unspecified psychosis not due to a substance or known physiological condition; Z68.21 Body mass index [BMI] 21.0-21.9, adult
CPT/HCPCS: 36415; 70030-TC; 80164; 83735; 84100; 85025; 87086; 93005; U0003-CS

== ENCOUNTER 2020-03-05 17:42 | Inpatient (IN) | payer MEDICARE, OTHER ==
[~2020-03-05] VITALS: Ht 152.4 cm; Wt 61.4 kg
[~2020-03-05 17:42] MED LIST changes: -CHOL10002 PO; +CHOL400T; -CLON0.1T PO; -CLOP75TA15 PO; +CLOP75TA33 PO; -DIVA125C2 PO; -DONE10TA11 PO; +GLIM1TAB PO; -GLIM2TAB PO; -LISI10TA PO; +LISI10TA5 PO; -MECL-159 PO; -MIRT15TA7 PO; -OXCA300T15 PO; -QUET25TA PO; -SIMV20TA2 PO
[2020-03-05] MEDS ORDERED: IV NORMAL SALINE 1000 ML BAG IV ONE (18:00)
[2020-03-05] MEDS ORDERED: MIRT15TA7 PO (18:13)
[2020-03-05] MEDS ORDERED: OLAN2.5T3 PO (18:13)
[2020-03-05] MEDS ORDERED: DIVA125C2 PO (18:13)
[2020-03-05] MEDS ORDERED: DICL100G16 TP (18:13)
[2020-03-05] MEDS ORDERED: MAG-55 PO (18:13)
[2020-03-05] MEDS ORDERED: VITAMIN D3 PO (18:13)
[2020-03-05] MEDS ORDERED: DEXT15DR6 EACHEYE (18:13)
[2020-03-05] MEDS ORDERED: MAGN400O6 PO (18:13)
[2020-03-05] MEDS ORDERED: MEGE400O4 PO (18:13)
[2020-03-05 18:31] LABS: BASOPHILS # (AUTO) 0.1 K/uL (0.0-8.0); BASOPHILS % (AUTO) 0.5 % (0.0-2.0); EOSINOPHILS # (AUTO) 0.1 K/uL (0.0-0.7); EOSINOPHILS % (AUTO) 0.9 % (0.0-7.0); HEMATOCRIT 32.6 % (31.2-41.9); HEMOGLOBIN 10.7 g/dL (10.9-14.3); LYMPHOCYTES # (AUTO) 1.4 K/uL (20.0-40.0); LYMPHOCYTES % (AUTO) 12.8 % (20.5-51.5); MEAN CORPUSCULAR HEMOGLOBIN 30.2 uug (24.7-32.8); MEAN CORPUSCULAR HGB CONC 33 g/dL (32.3-35.6); MEAN CORPUSCULAR VOLUME 91.7 fL (75.5-95.3); MONOCYTES # (AUTO) 0.7 K/uL (2.0-10.0); MONOCYTES % (AUTO) 6.1 % (0.0-11.0); NEUTROPHILS # (AUTO) 8.7 K/uL (1.8-8.9); NEUTROPHILS % (AUTO) 79.7 % (38.5-71.5); PLATELET COUNT (AUTO) 225 K/uL (179-408); RED BLOOD CELL COUNT(AUTO) 3.55 MIL/uL (3.63-4.92); WHITE BLOOD COUNT (AUTO) 10.9 K/uL (3.8-11.8)
[2020-03-05 18:35] LABS: CREATININE 0.9 mg/dL (0.6-1.3); POTASSIUM 4.7 mmol/L (3.5-5.1)
[2020-03-05 18:41] LABS: BILIRUBIN,DIRECT 0.1 mg/dL (0.0-0.2); BILIRUBIN,TOTAL 0.5 mg/dL (0.2-1.0)
--- NOTE | 2020-03-05 19:06 | NUR ---
Page RemitPro for admin.
--- NOTE | 2020-03-05 19:15 | NUR ---
Assumed care for patient at this time. Received report from outgoing nurse.
--- NOTE | 2020-03-05 20:15 | NUR ---
At 1930 Patient pulled out inserted PIV by AM nurse. Reinserted 22 G L Hand PIV and continued fluids. Changed patient into a hospital gown and removed extra blankets in the bed. Placed patient in a comfortable position. COVID 19 swab and MRSA swab sent to the laboratory. At 2014 Gi OKEEFE called 3rd floor charge nurse to get a room. Will call back.
--- NOTE | 2020-03-05 21:02 | NUR ---
Lola ([phone]) daughter called to get update on patient.
--- NOTE | 2020-03-05 22:20 | NUR ---
Called to give report, receiving nurse will take report when Covid 19 results get back. Followed up with lab.
[2020-03-05] MEDS ORDERED: MAGNESIUM HYDROXIDE 30 ML LIQUID UDC PO PRN (22:30)
[2020-03-05] MEDS ORDERED: HYDROCODONE/APAP 5-325MG TABLET PO PRN (22:45)
[2020-03-05] MEDS ORDERED: ONDANSETRON 4 MG/2 ML VIAL IV PRN (22:45)
--- NOTE | 2020-03-05 22:45 | NUR ---
Followed up with lab, and Keena followed up with [facility], samples being located at this time, they will call back for an update/result.
--- NOTE | 2020-03-05 23:20 | NUR ---
Patient is COVID (+) per TONE/Chema Charge Nurse. They were unable to publish results on [employer] and faxed a physical copy of Report. Helen OKEEFE statement clerks supervisor and Nae Hollins RN notified. Pending staffing change. Will give report once 3rd floor is ready.
--- NOTE | 2020-03-06 | NUR ---
Per RN Community Product Specialist, Assigned 3rd floor RN will call ER when ready to accept patient. Pt is stable and RN is making sure all needs are met at this time.
--- NOTE | 2020-03-06 00:24 | NUR ---
notified about patient's HR elevating to 120, but ranges in between 104-120. No signs of distress. RR: 20. O2 Sat: 95-96% on RA. BP: 156/65 at 2350. IV FLuids ordered at 75cc/hr. Rechecked BP at this time: 143/63 HR: 113. Repositioned patient in bed, placed in comfortable position. COVID 19 (+) protocols maintained.
--- NOTE | 2020-03-06 01:30 | NUR ---
Patient pulled out PIV again, will restart.
--- NOTE | 2020-03-06 02:43 | NUR ---
2 RN's attempted to start another Peripheral IV line for patient. Both were unsuccesful. RN supervisor home restoration service notified the need for IV line. HR of patient fluctuates from 90 - 120. Sinus Tach/Rhythm on monitor.
--- NOTE | 2020-03-06 03:28 | NUR ---
Jamila OKEEFE called to receive report, report given. Informed her of BP changes in the past 30 minutes, BP elevated to 180/74 at 03:20 from 155/85 at 03:04 AM. HR remains elevated from 100-120. Agreed to notify Russell ADAIR. Paged Russell ADAIR.
--- NOTE | 2020-03-06 03:45 | NUR ---
At 033 RN continued nursing intervention of repositioning patient to comfortable position and rechecking BP. Noted pt to be restless in bed. Re-assurance provided. At 0341, both arms checked. On LA: 157/70 and on RA: 151/82. Also tried again to put O2, but patient will only keep it on for 5-10 minutes, and then once nurse leaves the room, takes it off. Russell FEED ADVISER called back at this time. Reported changes to patient in the last hour and informed him of need of PICC line. Russell FEED ADVISER will out in orders. Informed Jamila OKEEFE. Will roll over.
--- NOTE | 2020-03-06 04:15 | NUR ---
Pt. admitted to Tele Dx: Syncope/Fall , under care of Dr. Suarez Belongs List completed and sent with patient. Warm handoff to Jamila OKEEFE.
[2020-03-06 04:25] VITALS: BP 165/77
--- NOTE | 2020-03-06 04:25 | NUR ---
RECEIVED PT FROM ER VIA [facility]. PT ON COVID ISOLATION. UNDER THE CARE OF DR. TRAN. DX: AMS/FALL. PT AWAKE AND CONFUSED. PT TRYING TO TAKE OF HER GOWN AND NASAL CANNULA. ADMISSION PROCESS AND CARE PLAN INITIATED. SKIN ASSESSMENT DONE AND WAS PUT ON THE PHYSICAL ASSESSMENT. NO PICTURES TAKEN. DR AWARE THAT PT NEEDS PICC LINE FOR IV ACCESS. BELONGING LIST NOTED. SAFETY AND COMFORT PROVIDED. WILL CONTINUE TO MONITOR.
--- NOTE | 2020-03-06 06:27 | NUR ---
PT SLEPT INTERMITTENTLY. PT RESTLESS. PT SEVERAL TIMES ATTEMPTED PULLING OUT STAVE SAW OPERATOR. PT TALKING TO HERSELF. IV FLUID HELD. DR DESIGN TECHNOLOGY TEACHER AWARE. PT WILL HAVE PICC LINE THIS AM. SAFETY AND COMFORT PROVIDED.ALL NEEDS ARE MET. WILL ENDORSE TO INCOMING NURSE FOR CONTINUITY OF CARE.
[2020-03-06 06:44] LABS: BASOPHILS % (AUTO) 0.3 % (0.0-2.0); EOSINOPHILS % (AUTO) 0.2 % (0.0-7.0); HEMATOCRIT 33.5 % (31.2-41.9); HEMOGLOBIN 11.2 g/dL (10.9-14.3); LYMPHOCYTES # (AUTO) 0.5 K/uL (20.0-40.0); LYMPHOCYTES % (AUTO) 4.4 % (20.5-51.5); MEAN CORPUSCULAR HEMOGLOBIN 30.7 uug (24.7-32.8); MEAN CORPUSCULAR HGB CONC 33 g/dL (32.3-35.6); MEAN CORPUSCULAR VOLUME 91.7 fL (75.5-95.3); MONOCYTES # (AUTO) 0.4 K/uL (2.0-10.0); MONOCYTES % (AUTO) 3.4 % (0.0-11.0); NEUTROPHILS # (AUTO) 9.5 K/uL (1.8-8.9); NEUTROPHILS % (AUTO) 91.7 % (38.5-71.5); PLATELET COUNT (AUTO) 191 K/uL (179-408); RED BLOOD CELL COUNT(AUTO) 3.66 MIL/uL (3.63-4.92); WHITE BLOOD COUNT (AUTO) 10.4 K/uL (3.8-11.8)
[2020-03-06 07:02] LABS: ALANINE AMINOTRANSFERASE 21 U/L (14-59); ALKALINE PHOSPHATASE 53 U/L (50-136); ASPARTATE AMINOTRANSFERASE 28 U/L (15-37); BILIRUBIN,TOTAL 0.8 mg/dL (0.2-1.0); CARBON DIOXIDE 21 mmol/L (21-32); CHLORIDE 111 mmol/L (98-107); CREATINE KINASE, TOTAL 195 U/L (26-192); CREATININE 1.4 mg/dL (0.6-1.3); GLUCOSE 116 mg/dL (74-106); MAGNESIUM 2.5 mg/dL (1.8-2.4); PHOSPHOROUS 3.8 mg/dL (2.5-4.9); POTASSIUM 5.5 mmol/L (3.5-5.1); TOTAL PROTEIN, SERUM 6.5 g/dL (6.4-8.2); UREA NITROGEN, BLOOD 29 mg/dL (7-18)
[2020-03-06] MEDS: DIVALPROEX SPRINKLE 125 MG CAP.SPRINK PO SCH ×4 (08:06→16:37)
[2020-03-06] MEDS: PANTOPRAZOLE SODIUM 40 MG TABLET.DR PO SCH (08:06)
[2020-03-06] MEDS: CLOPIDOGREL 75 MG TABLET PO SCH (08:07)
[2020-03-06] MEDS: MULTIVITAMINS,THERAPEUTIC TABLET PO SCH (08:07)
[2020-03-06] MEDS: METOPROLOL SUCCINATE XL 50 MG TAB.SR.24H PO SCH (08:07)
[2020-03-06] MEDS: ASPIRIN EC 81 MG TABLET.DR PO SCH (08:07)
[2020-03-06] MEDS: MEGESTROL ACETATE 400 MG/10 ML LIQUID UDC PO SCH (08:16)
[2020-03-06] MEDS: CHOLECALCIFEROL 400 UNITS TABLET PO SCH (08:16)
[2020-03-06 08:29] VITALS: BP 170/60
[2020-03-06] MEDS ORDERED: ASPIRIN 81 MG TAB.CHEW PO SCH (09:00)
[2020-03-06] MEDS: CLONIDINE HCL 0.1 MG TABLET PO PRN (09:56)
[2020-03-06] MEDS: LORAZEPAM 0.5 MG TABLET PO PRN (09:56)
[2020-03-06 10:58] LABS: *BILIRUBIN,URIN NEGATIVE (NEGATIVE); *BLOOD, URINE 1+ (NEGATIVE); *CLARITY,URINE CLEAR (CLEAR); *COLOR,URINE YELLOW (YELLOW); *KETONES,URINE 1+ (NEGATIVE); *UROBILINOGEN,URINE 0.2 E.U./dl (NORMAL); LEUKOCYTE ESTERASE ,URINE NEGATIVE (NEGATIVE); NITRITE, URINE NEGATIVE (NEGATIVE); UGLUCOSE NEGATIVE (NEGATIVE)
[2020-03-06 12:17] LABS: SQUAMOUS EPITHELIAL CELL,UR FEW /HPF (NONE SEEN); WBC,URINE 0-3 /HPF (0-3)
[2020-03-06 12:18] LABS: BACTERIA,URINE FEW /HPF (NONE SEEN)
[2020-03-06] MEDS ORDERED: QUETIAPINE FUMARATE 25 MG TABLET PO PRN (12:30)
--- NOTE | 2020-03-06 12:44 | NUR ---
Received patient awake in bed, confuse and mild agitated. Patient continue on isolation for covid19 positive. no cough, not in distress during rounds.Patient BP 170/60 clonidine 0.1 mg PRN given. Patient SAO2-96% room air. Patient seen and examined by MD Meeks and OLGA Sherman with new orders. Patient refuse meals despite of encouragement. Patient ativan 0.5mg PRN given with good effect. Patient for psych consult for agitation and psychosis. MD Resendiz notifed. Patient continue on Tele monitoring. Intact, on sinus rhythm. For insertion of midline. will continue monitor
--- NOTE | 2020-03-06 13:01 | NUR ---
Patient urine collected via straight catheter for urine culture and urinalysis. Awaiting for result
[2020-03-06] MEDS ORDERED: FUROSEMIDE 40 MG/4 ML VIAL IV ONE (14:30)
[2020-03-06] MEDS ORDERED: SODIUM POLYSTYRENE SULFONATE 15 G/60 ML LIQUID UDC PO ONE (14:30)
[2020-03-06 15:11] LABS: *CREATININE,URINE 104.8 mg/dL (30-125); *URINE TOTAL PROTEIN RANDOM 19.2 mg/dL (<150/24HR)
[2020-03-06] MEDS ORDERED: FUROSEMIDE 40 MG TABLET PO ONE (16:00)
[2020-03-06] MEDS: MIRTAZAPINE 15 MG TABLET PO SCH (17:16)
[2020-03-06] MEDS: OLANZAPINE 2.5 MG TABLET PO SCH (17:16)
[2020-03-06 17:40] LABS: CARBON DIOXIDE 20 mmol/L (21-32); CHLORIDE 111 mmol/L (98-107); CREATININE 1.4 mg/dL (0.6-1.3); GLUCOSE 110 mg/dL (74-106); POTASSIUM 4.5 mmol/L (3.5-5.1); UREA NITROGEN, BLOOD 31 mg/dL (7-18)
[2020-03-06] MEDS: ACETAMINOPHEN 325 MG TABLET PO PRN (17:59)
--- NOTE | 2020-03-06 18:12 | NUR ---
Patient on 0.9 % NS 1000ml 75cc/hr onetime as ordered by MD Jefferson. Patient poor appetite despite of encouragement and education.
[2020-03-06] MEDS ORDERED: IV NS 1000 ML 1,000 ML IV ONE ×2 (18:15)
[2020-03-06 20:00] VITALS: BP 141/55
[2020-03-06] MEDS ORDERED: DOCUSATE SODIUM 250 MG CAPSULE PO SCH (21:00)
[2020-03-06] MEDS: ATORVASTATIN 20 MG TABLET PO SCH (21:19)
[2020-03-06] MEDS: DOCUSATE SODIUM 100 MG CAPSULE PO SCH (21:19)
[2020-03-06] MEDS: HALOPERIDOL LACTATE 5 MG/1 ML VIAL IM PRN (22:02)
[2020-03-07] VITALS: BP 146/62
[2020-03-07] MEDS: HALOPERIDOL LACTATE 5 MG/1 ML VIAL IM PRN (01:49)
[2020-03-07 04:00] VITALS: BP 148/69
--- NOTE | 2020-03-07 08:00 | NUR ---
RESTING IN BED WITH EYES CLOSED, NO SS OF PAIN OR DISTRESS. SR/ ST ON MONITOR
[2020-03-07] MEDS: CLOPIDOGREL 75 MG TABLET PO SCH (08:14)
[2020-03-07] MEDS: ASPIRIN EC 81 MG TABLET.DR PO SCH (08:14)
[2020-03-07] MEDS: DIVALPROEX SPRINKLE 125 MG CAP.SPRINK PO SCH ×3 (08:14→17:02)
[2020-03-07] MEDS: PANTOPRAZOLE SODIUM 40 MG TABLET.DR PO SCH (08:15)
[2020-03-07] MEDS: CHOLECALCIFEROL 400 UNITS TABLET PO SCH (08:16)
[2020-03-07] MEDS: MEGESTROL ACETATE 400 MG/10 ML LIQUID UDC PO SCH (08:16)
[2020-03-07] MEDS: MULTIVITAMINS,THERAPEUTIC TABLET PO SCH (08:16)
[2020-03-07] MEDS: METOPROLOL SUCCINATE XL 50 MG TAB.SR.24H PO SCH (08:54)
[2020-03-07] MEDS: LORAZEPAM 0.5 MG TABLET PO PRN (08:54)
[2020-03-07 09:11] LABS: BASOPHILS % (AUTO) 0.5 % (0.0-2.0); EOSINOPHILS # (AUTO) 0.1 K/uL (0.0-0.7); EOSINOPHILS % (AUTO) 1.5 % (0.0-7.0); LYMPHOCYTES # (AUTO) 0.7 K/uL (20.0-40.0); LYMPHOCYTES % (AUTO) 7.7 % (20.5-51.5); MEAN CORPUSCULAR HEMOGLOBIN 30.5 uug (24.7-32.8); MEAN CORPUSCULAR HGB CONC 33 g/dL (32.3-35.6); MEAN CORPUSCULAR VOLUME 91.7 fL (75.5-95.3); MONOCYTES # (AUTO) 0.7 K/uL (2.0-10.0); MONOCYTES % (AUTO) 7.3 % (0.0-11.0); NEUTROPHILS # (AUTO) 7.4 K/uL (1.8-8.9); PLATELET COUNT (AUTO) 155 K/uL (179-408); RED BLOOD CELL COUNT(AUTO) 2.95 MIL/uL (3.63-4.92); WHITE BLOOD COUNT (AUTO) 8.9 K/uL (3.8-11.8)
[2020-03-07 09:46] VITALS: BP 159/66
--- NOTE | 2020-03-07 09:55 | NUR ---
VANESSA TOP IRONER IN CHARGE FROM [facility] CALLED, UPDATED ABOUT PATIENT STATUS.
--- NOTE | 2020-03-07 10:03 | NUR ---
DAUGHTER ADAM CALLED UPDATE ABOUT PATIENT GIVEN
[2020-03-07 11:06] LABS: ALANINE AMINOTRANSFERASE 20 U/L (14-59); ALKALINE PHOSPHATASE 53 U/L (50-136); ASPARTATE AMINOTRANSFERASE 39 U/L (15-37); BILIRUBIN,TOTAL 0.6 mg/dL (0.2-1.0); CARBON DIOXIDE 21 mmol/L (21-32); CHLORIDE 113 mmol/L (98-107); CREATININE 1.4 mg/dL (0.6-1.3); FERRITIN 321 ng/mL (8-252); GLUCOSE 98 mg/dL (74-106); LACTATE DEHYDROGENASE 326 U/L (81-234); PHOSPHOROUS 3.6 mg/dL (2.5-4.9); POTASSIUM 4.1 mmol/L (3.5-5.1); TOTAL PROTEIN, SERUM 6.2 g/dL (6.4-8.2); UREA NITROGEN, BLOOD 30 mg/dL (7-18)
[2020-03-07 11:26] LABS: CREATINE KINASE, TOTAL 520 U/L (26-192)
--- NOTE | 2020-03-07 11:34 | NUR ---
WOUND CARE CONSULT: REVIEWED CHART, NURSING DOCUMENTATION AND PHOTOS WHICH SHOW DISCOLORATION ON BUTTOCKS AND HIP, PRESENT ON ADMISSION. PER DOCUMENTATION, PT HAS HISTORY OF FALL AT FACILITY. RECOMMENDATIONS MADE FOR SKIN PROTECTION. DISCUSSED WITH NURSING STAFF. WILL SEE PRN. SHELL IN AGREEMENT WITH PLAN OF CARE. CURRENT BASIL SCORE IS 13.
[2020-03-07] MEDS ORDERED: Z GUARD REMEDY PASTE 57 GM TUBE TOP PRN (11:45)
[2020-03-07 15:55] VITALS: BP 136/65
[2020-03-07] MEDS: MIRTAZAPINE 15 MG TABLET PO SCH (17:02)
[2020-03-07] MEDS: OLANZAPINE 2.5 MG TABLET PO SCH (17:02)
--- NOTE | 2020-03-07 18:30 | NUR ---
CONTINUE 1:1 SITTER FOR CONFUSION AND FALL RISK. PATIENT SO FAR IS ABLE TO EAT/FEEDER, TAKING MEDS WITH MAX ASSIST. SR ON MONITOR
--- NOTE | 2020-03-07 19:30 | NUR ---
Received patient lying in bed. Asleep at this time. No signs or symptoms of pain or SOB noted. SR on tele at 86/min. Right FA IV site intact and patent. 1:1 sitter on site. No behavioral issues noted at this time. Droplet and contact precaution observed. Continue to monitor.
[2020-03-07 19:51] VITALS: BP 173/77
[2020-03-07] MEDS: DOCUSATE SODIUM 100 MG CAPSULE PO SCH (20:19)
[2020-03-07] MEDS: ACETAMINOPHEN 325 MG TABLET PO PRN (20:19)
[2020-03-07] MEDS: ATORVASTATIN 20 MG TABLET PO SCH (20:19)
[2020-03-07] MEDS: CLONIDINE HCL 0.1 MG TABLET PO PRN (20:20)
[2020-03-07] MEDS: Z GUARD REMEDY PASTE 57 GM TUBE TOP SCH (20:34)
[2020-03-07 22:00] VITALS: BP 149/63
[2020-03-08] VITALS: BP 153/52
[2020-03-08] MEDS: LORAZEPAM 0.5 MG TABLET PO PRN (05:50)
[2020-03-08 06:00] VITALS: BP 187/75
[2020-03-08] MEDS: CLONIDINE HCL 0.1 MG TABLET PO PRN ×2 (06:07→21:24)
--- NOTE | 2020-03-08 06:24 | NUR ---
Confused and disoriented. Keeps her eyes closed the whole time. With episode of restlessness and anxiety. Ativan 0.5mg PO given per PRN order. No signs or symptoms of pain or SOB. Sinus tachy on tele at the 130's/min. Right FA IV site intact and patent. 1:1 sitter on site. Droplet and contact precaution maintained.
[2020-03-08] MEDS: CLOPIDOGREL 75 MG TABLET PO SCH (07:55)
[2020-03-08] MEDS: MULTIVITAMINS,THERAPEUTIC TABLET PO SCH (07:55)
[2020-03-08] MEDS: DIVALPROEX SPRINKLE 125 MG CAP.SPRINK PO SCH ×3 (07:55→17:01)
[2020-03-08] MEDS: PANTOPRAZOLE SODIUM 40 MG TABLET.DR PO SCH (07:55)
[2020-03-08] MEDS: ASPIRIN EC 81 MG TABLET.DR PO SCH (07:55)
[2020-03-08] MEDS: MEGESTROL ACETATE 400 MG/10 ML LIQUID UDC PO SCH (07:55)
[2020-03-08] MEDS: Z GUARD REMEDY PASTE 57 GM TUBE TOP SCH ×2 (07:56→20:57)
[2020-03-08] MEDS: CHOLECALCIFEROL 400 UNITS TABLET PO SCH (07:56)
[2020-03-08 08:00] VITALS: BP 134/60
[2020-03-08] MEDS: AMLODIPINE 5 MG TABLET PO SCH (08:23)
[2020-03-08] MEDS: METOPROLOL SUCCINATE XL 50 MG TAB.SR.24H PO SCH (08:23)
[2020-03-08 09:18] LABS: BASOPHILS % (AUTO) 0.4 % (0.0-2.0); EOSINOPHILS % (AUTO) 0.4 % (0.0-7.0); HEMATOCRIT 25.7 % (31.2-41.9); HEMOGLOBIN 8.7 g/dL (10.9-14.3); LYMPHOCYTES # (AUTO) 0.6 K/uL (20.0-40.0); LYMPHOCYTES % (AUTO) 6.2 % (20.5-51.5); MEAN CORPUSCULAR HEMOGLOBIN 30.9 uug (24.7-32.8); MEAN CORPUSCULAR HGB CONC 34 g/dL (32.3-35.6); MEAN CORPUSCULAR VOLUME 91.3 fL (75.5-95.3); MONOCYTES # (AUTO) 0.8 K/uL (2.0-10.0); NEUTROPHILS # (AUTO) 8.7 K/uL (1.8-8.9); PLATELET COUNT (AUTO) 178 K/uL (179-408); RED BLOOD CELL COUNT(AUTO) 2.82 MIL/uL (3.63-4.92); WHITE BLOOD COUNT (AUTO) 10.3 K/uL (3.8-11.8)
[2020-03-08 09:41] LABS: CREATININE 1.3 mg/dL (0.6-1.3); MAGNESIUM 1.9 mg/dL (1.8-2.4); PHOSPHOROUS 3.8 mg/dL (2.5-4.9); POTASSIUM 3.4 mmol/L (3.5-5.1)
[2020-03-08 12:00] VITALS: BP 146/62
[2020-03-08] MEDS ORDERED: POTASSIUM CHLORIDE 20 MEQ TAB.PRT.SR PO ONE (15:00)
[2020-03-08 16:00] VITALS: BP 143/67
[2020-03-08] MEDS: OLANZAPINE 2.5 MG TABLET PO SCH (17:01)
[2020-03-08] MEDS: MIRTAZAPINE 15 MG TABLET PO SCH (17:01)
[2020-03-08] MEDS: IV 1/2NS 1000 ML 1,000 ML IV PRN (17:01)
--- NOTE | 2020-03-08 19:20 | NUR ---
Received Patient in bed has 1:1 sitter awake confused and disoriented ,re-orientation rendered. Patient pulled out her IV line .Stared new line on left hand 20g x2 attempt with good blood return.Patient tolerated well.Continue on droplet and contact precaution.Will continue to monitor.
[2020-03-08 19:39] VITALS: BP 169/70
[2020-03-08] MEDS: ATORVASTATIN 20 MG TABLET PO SCH (20:46)
[2020-03-08] MEDS: DOCUSATE SODIUM 100 MG CAPSULE PO SCH (20:46)
[2020-03-08] MEDS: ENOXAPARIN SODIUM 30 MG/0.3 ML DISP.SYRIN SUBCUT SCH (20:53)
[2020-03-09] MEDS: CLONIDINE HCL 0.1 MG TABLET PO PRN (04:57)
[2020-03-09] MEDS: IV 1/2NS 1000 ML 1,000 ML IV PRN ×2 (05:57→18:00)
--- NOTE | 2020-03-09 06:41 | NUR ---
Patient asleep no s/s of distress noted at this time.Cont on tele monitor.IV line remained intact on left hand.Will endorse to on coming nurse.
[2020-03-09 07:17] VITALS: BP 157/57
[2020-03-09] MEDS: LORAZEPAM 0.5 MG TABLET PO PRN (07:59)
[2020-03-09] MEDS: METOPROLOL SUCCINATE XL 50 MG TAB.SR.24H PO SCH (08:00)
[2020-03-09] MEDS: MULTIVITAMINS,THERAPEUTIC TABLET PO SCH (08:01)
[2020-03-09] MEDS: AMLODIPINE 5 MG TABLET PO SCH (08:01)
[2020-03-09] MEDS: DIVALPROEX SPRINKLE 125 MG CAP.SPRINK PO SCH ×3 (08:08→17:01)
[2020-03-09] MEDS: CLOPIDOGREL 75 MG TABLET PO SCH (08:08)
[2020-03-09] MEDS: ASPIRIN EC 81 MG TABLET.DR PO SCH (08:08)
[2020-03-09] MEDS: PANTOPRAZOLE SODIUM 40 MG TABLET.DR PO SCH (08:08)
[2020-03-09] MEDS: MEGESTROL ACETATE 400 MG/10 ML LIQUID UDC PO SCH (08:12)
[2020-03-09] MEDS: CHOLECALCIFEROL 400 UNITS TABLET PO SCH (08:12)
[2020-03-09] MEDS: Z GUARD REMEDY PASTE 57 GM TUBE TOP SCH ×2 (08:30→20:10)
[2020-03-09 09:09] LABS: BASOPHILS % (AUTO) 0.2 % (0.0-2.0); EOSINOPHILS % (AUTO) 0.1 % (0.0-7.0); HEMATOCRIT 30.7 % (31.2-41.9); HEMOGLOBIN 10.3 g/dL (10.9-14.3); LYMPHOCYTES % (AUTO) 8.2 % (20.5-51.5); MEAN CORPUSCULAR HEMOGLOBIN 30.8 uug (24.7-32.8); MEAN CORPUSCULAR HGB CONC 33 g/dL (32.3-35.6); MEAN CORPUSCULAR VOLUME 92.3 fL (75.5-95.3); MONOCYTES # (AUTO) 0.9 K/uL (2.0-10.0); MONOCYTES % (AUTO) 6.8 % (0.0-11.0); NEUTROPHILS # (AUTO) 10.7 K/uL (1.8-8.9); NEUTROPHILS % (AUTO) 84.7 % (38.5-71.5); PLATELET COUNT (AUTO) 231 K/uL (179-408); RED BLOOD CELL COUNT(AUTO) 3.33 MIL/uL (3.63-4.92); WHITE BLOOD COUNT (AUTO) 12.7 K/uL (3.8-11.8)
[2020-03-09 09:23] LABS: CREATININE 1.3 mg/dL (0.6-1.3); MAGNESIUM 2.2 mg/dL (1.8-2.4); PHOSPHOROUS 3.5 mg/dL (2.5-4.9); POTASSIUM 3.6 mmol/L (3.5-5.1)
[2020-03-09] MEDS: ACETAMINOPHEN 325 MG TABLET PO PRN ×2 (10:18→20:10)
--- NOTE | 2020-03-09 11:06 | NUR ---
Received in bed, awake. No signs of distress noted. No SOB. No signs of Pain or discomfort. Patient is restless, Ativan 0.5mg given as ordered. patient on 1:1 sitter for safety. Kept clean and comfortable. Will continue to monitor.
[2020-03-09 11:50] VITALS: BP 144/66
--- NOTE | 2020-03-09 14:43 | NUR ---
Relayed Negative Covid [address] Sherman.
[2020-03-09 15:33] VITALS: BP 150/76
--- NOTE | 2020-03-09 16:00 | NUR ---
Patient was moved to Room 306.
[2020-03-09] MEDS: MIRTAZAPINE 15 MG TABLET PO SCH (17:01)
[2020-03-09] MEDS: OLANZAPINE 2.5 MG TABLET PO SCH (17:01)
--- NOTE | 2020-03-09 18:06 | NUR ---
Patient in bed, no signs of distress noted, No SOB. Afebrile. No complain of pain or discomfort at this time. remains on 1:1 sitter for safety. kept clean and comfortable. Will continue to monitor.
[2020-03-09 19:55] VITALS: BP 141/82
[2020-03-09] MEDS: DOCUSATE SODIUM 100 MG CAPSULE PO SCH (20:08)
[2020-03-09] MEDS: ENOXAPARIN SODIUM 30 MG/0.3 ML DISP.SYRIN SUBCUT SCH (20:09)
[2020-03-09] MEDS: ATORVASTATIN 20 MG TABLET PO SCH (20:10)
[2020-03-10 04:00] VITALS: BP 144/78
[2020-03-10] MEDS: IV 1/2NS 1000 ML 1,000 ML IV PRN (05:47)
[2020-03-10 07:20] LABS: BASOPHILS # (AUTO) 0.1 K/uL (0.0-8.0); BASOPHILS % (AUTO) 0.6 % (0.0-2.0); EOSINOPHILS % (AUTO) 0.2 % (0.0-7.0); HEMATOCRIT 30.5 % (31.2-41.9); HEMOGLOBIN 10.1 g/dL (10.9-14.3); LYMPHOCYTES % (AUTO) 6.3 % (20.5-51.5); MEAN CORPUSCULAR HEMOGLOBIN 30.2 uug (24.7-32.8); MEAN CORPUSCULAR HGB CONC 33 g/dL (32.3-35.6); MEAN CORPUSCULAR VOLUME 90.9 fL (75.5-95.3); MONOCYTES # (AUTO) 1.4 K/uL (2.0-10.0); MONOCYTES % (AUTO) 8.9 % (0.0-11.0); NEUTROPHILS # (AUTO) 13.5 K/uL (1.8-8.9); PLATELET COUNT (AUTO) 326 K/uL (179-408); RED BLOOD CELL COUNT(AUTO) 3.36 MIL/uL (3.63-4.92); WHITE BLOOD COUNT (AUTO) 16.1 K/uL (3.8-11.8)
[2020-03-10 07:27] LABS: CREATININE 1.3 mg/dL (0.6-1.3); MAGNESIUM 2.1 mg/dL (1.8-2.4); PHOSPHOROUS 2.4 mg/dL (2.5-4.9); POTASSIUM 3.3 mmol/L (3.5-5.1)
--- NOTE | 2020-03-10 07:40 | NUR ---
Patient in bed, farsi speaking. No signs of distress noted. No SOB. Afebrile. No complain of pain or discomfort noted. On 1:1 sitter for safety. kept clean and comfortable. Will continue to monitor.
[2020-03-10] MEDS: ACETAMINOPHEN 325 MG TABLET PO PRN (08:05)
[2020-03-10] MEDS: DIVALPROEX SPRINKLE 125 MG CAP.SPRINK PO SCH ×3 (08:05→17:01)
[2020-03-10] MEDS: ASPIRIN EC 81 MG TABLET.DR PO SCH (08:06)
[2020-03-10] MEDS: CHOLECALCIFEROL 400 UNITS TABLET PO SCH (08:06)
[2020-03-10] MEDS: MULTIVITAMINS,THERAPEUTIC TABLET PO SCH (08:06)
[2020-03-10] MEDS: PANTOPRAZOLE SODIUM 40 MG TABLET.DR PO SCH (08:06)
[2020-03-10] MEDS: CLOPIDOGREL 75 MG TABLET PO SCH (08:06)
[2020-03-10] MEDS: MEGESTROL ACETATE 400 MG/10 ML LIQUID UDC PO SCH (08:07)
[2020-03-10] MEDS: METOPROLOL SUCCINATE XL 50 MG TAB.SR.24H PO SCH (08:07)
[2020-03-10] MEDS: AMLODIPINE 5 MG TABLET PO SCH (08:07)
[2020-03-10] MEDS: Z GUARD REMEDY PASTE 57 GM TUBE TOP SCH (08:45)
[2020-03-10] MEDS ORDERED: POTASSIUM CHLORIDE 20 MEQ TAB.PRT.SR PO ONE (10:00)
[2020-03-10 12:00] VITALS: BP 167/67
[2020-03-10 16:00] VITALS: BP 142/65
[2020-03-10] MEDS ORDERED: CEPH-569 PO (16:01)
[2020-03-10] MEDS: MIRTAZAPINE 15 MG TABLET PO SCH (17:01)
[2020-03-10] MEDS: OLANZAPINE 2.5 MG TABLET PO SCH (17:01)
--- NOTE | 2020-03-10 18:18 | NUR ---
Patient in bed, No signs of distress noted. No cough/congestion. No complain of Pain or discomfort. Afebrile. Patient with Order to be discharge back to [facility], called SNF and gave report to William OKEEFE. All belongings was sent with Patient, Removed IV site and Wrist band. Patient was Picked up by 2 EMT in stable condition.
[2020-03-10] MEDS ORDERED: NEUTRA PHOS PACKET PO ONE (18:30)
== END 2020-03-10 18:30 | DRG 280 ==
LOC: ER 17:42 → TELE3 03-06 03:53 → MEDSURG3 03-09 16:10
PROVIDERS: ADMIT Internal Medicine; ATTEND Nurse Practitioner Acute Care
DX: I11.0 Hypertensive heart disease with heart failure (principal); N17.0 Acute kidney failure with tubular necrosis; I21.A1 Myocardial infarction type 2; G92 Toxic encephalopathy; D68.69 Other thrombophilia; F03.91 Unspecified dementia, unspecified severity, with behavioral disturbance; I50.33 Acute on chronic diastolic (congestive) heart failure; R55 Syncope and collapse; R00.0 Tachycardia, unspecified; Z79.02 Long term (current) use of antithrombotics/antiplatelets; I25.2 Old myocardial infarction; E78.5 Hyperlipidemia, unspecified; D64.9 Anemia, unspecified; E11.9 Type 2 diabetes mellitus without complications; E53.8 Deficiency of other specified B group vitamins; E86.9 Volume depletion, unspecified; E87.5 Hyperkalemia; F32.9 Major depressive disorder, single episode, unspecified; F41.9 Anxiety disorder, unspecified; I25.10 Atherosclerotic heart disease of native coronary artery without angina pectoris; M81.0 Age-related osteoporosis without current pathological fracture; Z79.82 Long term (current) use of aspirin; Z79.84 Long term (current) use of oral hypoglycemic drugs; Z88.0 Allergy status to penicillin; M50.30 Other cervical disc degeneration, unspecified cervical region; M48.02 Spinal stenosis, cervical region; R53.1 Weakness; R91.1 Solitary pulmonary nodule; H91.90 Unspecified hearing loss, unspecified ear; W18.30XA Fall on same level, unspecified, initial encounter; Y93.9 Activity, unspecified; Y92.129 Unspecified place in nursing home as the place of occurrence of the external cause
CPT/HCPCS: 36415; 70030-TC; 70450; 71045; 72125; 72170; 83615; 83735; 83970; 84100; 84156; 84300; 85025; 85730; 86140; 86850; 86900; 86901; 87086; 93005; A4663; C1758; G0378; J1630; J1650; J3490; J7030; J8999; U0003-CS